=== PATIENT | male | born 1995 | race Caucasian/White ===

== ENCOUNTER 2016-08-09 22:44 | Emergency (ER) | payer BC, SELFPAY ==
[2016-08-09] MEDS ORDERED: Aspirin 81 MG Tab.Chew PO ONE (22:55)
--- NOTE | 2016-08-09 22:57 | EDM.PDOC ---
ED HISTORY OF PRESENT ILLNESS - General Chief Complaint: Chest Pain Stated Complaint: CHEST PAIN/NUMBNESS Time Seen by Provider: 08/09/16 22:51 Source of Information: Reports: Patient History Limitations: Reports: No limitations - History of Present Illness INITIAL COMMENTS - FREE TEXT/NARRATIVE: HISTORY AND PHYSICAL: History of present illness: [20-year-old male history of depression and anxiety now presents to the emergency department complaining of shortness of breath with bilateral hand and feet tingling. She has a history of chronically perceiving shortness of breath. He said multiple workups including being fully evaluated by a software development advisor and cleared. Vision a normal pulmonary function testing recently. He is never had an echocardiogram . No productive cough or fever. Denies pleuritic pain. No leg swelling or asymmetry. Per mom patient was breathing or if asked and both ends and they were tingly. Now improved Review of systems: As per history of present illness and below otherwise all systems reviewed and negative. Past medical history: As per history of present illness and as reviewed below otherwise noncontributory. Surgical history: As per history of present illness and as reviewed below otherwise noncontributory. Social history: No reported history of drug or alcohol abuse. Family history: As per history of present illness and as reviewed below otherwise noncontributory. Physical exam: HEENT: Atraumatic, normocephalic, pupils reactive, negative for conjunctival pallor or scleral icterus, mucous membranes moist, throat clear, neck supple, nontender, trachea midline. Lungs: Clear to auscultation, breath sounds equal bilaterally, chest nontender. Heart: S1S2, regular, negative for clicks, rubs, or JVD. Abdomen: Soft, nondistended, nontender. Negative for masses or hepatosplenomegaly. Negative for costovertebral tenderness. Pelvis: Stable nontender. Genitourinary: Deferred. Rectal: Deferred. Extremities: Atraumatic, negative for cords or calf pain. Neurovascular unremarkable. Neuro: Awake, alert, oriented. Cranial nerves II through XII unremarkable. Cerebellum unremarkable. Motor and sensory unremarkable throughout. Exam nonfocal. Diagnostics: [] Therapeutics: [] Impression: [Anxiety Hyperventilation syndrome] Plan: [] Signs and symptoms consistent with hyperventilation bilateral upper and lower shimmery tingling paresthesias. Patient is anxious. He is a history of anxiety and depression. Fully DInocencio workup unremarkable. Patient well-appearing comfortable on reevaluation prior to discharge no further workup or treatment indicated strict return precautions given Definitive disposition and diagnosis as appropriate pending reevaluation and review of above. - Related Data Allergies/ADRs: Allergies Allergy/AdvReac Type Severity Reaction Status Date / Time No Known Allergies Allergy Verified 04/18/16 23:27 Home Meds: Home Meds ALPRAZolam [Xanax] 1 tab PO ASDIRECTED PRN 10/09/14 [History] Albuterol Sulfate [Albuterol Sulfate HFA] 1 - 2 puff INH ASDIRECTED PRN [History] Sertraline HCl [Zoloft] 200 mg PO DAILY 10/09/14 [History] Past Medical History HEENT History: Reports: Impaired vision Cardiovascular History: Reports: None Respiratory History: Reports: Asthma Gastrointestinal History: Reports: None Genitourinary History: Reports: None Musculoskeletal History: Reports: None Neurological History: Reports: None Psychiatric History: Reports: Anxiety, Depression Endocrine/Metabolic History: Reports: None Hematologic History: Reports: None - Infectious Disease History Infectious Disease History: Reports: None - Past Surgical History GI Surgical History: Reports: None Male Surgical History: Reports: None Social & Family History - Family History Family Medical History: Noncontributory - Tobacco Use Smoking Status *Q: Current Every Day Smoker Years of Tobacco use: 5 Packs/Tins Daily: 1 - Caffeine Use Caffeine Use: Reports: None - Recreational Drug Use Recreational Drug Use: No ED ROS GENERAL - Review of Systems Review Of Systems: See Below (History of present illness) ED EXAM, GENERAL - Physical Exam Exam: See Below (History of present illness) Course - Vital Signs Last Recorded V/S: Last Vital Signs Temp 36.5 C 08/10/16 01:35 Pulse 85 08/10/16 01:35 Resp 16 08/10/16 01:35 BP 129/78 08/10/16 01:35 Pulse Ox 98 08/10/16 01:35 - Orders/Labs/Meds Orders: Active Orders 24 hr Category Date Time Status EKG 12 Lead [EKG Documentation Completion] [RC] ROUTINE Care 08/09/16 22:51 Active CTA Chest W WO Contrast [Ang Chest] [CT] Stat Exams 08/10/16 00:02 Taken Chest 1V Frontal [CR] Stat Exams 08/09/16 22:56 Taken Labs: Laboratory Tests 08/09/16 08/09/16 08/09/16 Range/Units 23:04 23:04 23:04 WBC 7.61 (4.0-11.0) K/uL RBC 5.39 (4.50-5.90) M/uL Hgb 15.8 (13.0-17.0) g/dL Hct 45.0 (38.0-50.0) % MCV 83.5 (80.0-98.0) fL MCH 29.3 (27.0-32.0) pg MCHC 35.1 (31.0-37.0) g/dL RDW Std Deviation 37.7 (28.0-62.0) fl RDW Coeff of Alfredito 13 (11.0-15.0) % Plt Count 219 (150-400) K/uL MPV 10.10 (7.40-12.00) fL Neut % (Auto) 56.3 (48.0-80.0) % Lymph % (Auto) 33.2 (16.0-40.0) % Stan[place] % (Auto) 8.0 (0.0-15.0) % Eos % (Auto) 2.0 (0.0-7.0) % Baso % (Auto) 0.5 (0.0-1.5) % Neut # (Auto) 4.3 (1.4-5.7) K/uL Lymph # (Auto) 2.5 H (0.6-2.4) K/uL Stan[place] # (Auto) 0.6 (0.0-0.8) K/uL Eos # (Auto) 0.2 (0.0-0.7) K/uL Baso # (Auto) 0.0 (0.0-0.1) K/uL Nucleated RBC % 0.0 /100WBC Nucleated RBCs # 0 K/uL Sodium 139 (136-146) mmol/L Potassium 3.9 (3.5-5.1) mmol/L Chloride 108 (98-110) mmol/L Carbon Dioxide 16 L (21-31) mmol/L BUN 15 (6.0-23.0) mg/dL Creatinine 1.0 (0.6-1.5) mg/dL Est Cr Clr Drug Dosing 127.18 mL/min Estimated GFR (MDRD) > 60.0 ml/min Glucose 99 (60-110) mg/dL Calcium 10.2 (8.8-10.8) mg/dL Total Bilirubin 0.6 (0.1-1.5) mg/dL AST 19 (5-40) IU/L ALT 44 (8-54) IU/L Alkaline Phosphatase 72 (40-150) Troponin I 0.22 (0.0-0.29) NG/ML Total Protein 8.1 H (6.0-8.0) g/dL Albumin 4.5 (3.5-5.0) g/dL Globulin 3.6 H (2.0-3.5) g/dL Albumin/Globulin Ratio 1.3 (1.3-2.8) Meds: Medications Discontinued Medications Generic Name Dose Route Start Last Admin Trade Name Freq PRN Reason Stop Dose Admin Aspirin 324 mg 08/09/16 22:55 08/09/16 23:04 Aspirin PO 08/09/16 22:56 324 mg ONETIME ONE Administration Sodium Chloride 1,000 mls @ 999 mls/hr 08/10/16 00:01 08/10/16 00:05 Normal Saline IV 08/10/16 01:01 999 mls/hr .Bolus ONE Administration Iopamidol 50 ml 08/10/16 00:39 08/10/16 00:40 Isovue Multipack-370 (76%) IVPUSH 08/10/16 00:40 50 ml ONETIME STA Administration Departure - Departure Time of Disposition: :17 Disposition: Home, Self-Care 01 Condition: good Clinical Impression: Anxiety, Hyperventilation syndrome Instructions: Hyperventilation, Panic Attacks, [id number] Referrals: Maxi Pinto MD [Primary Care Provider] - Forms: ED Department Discharge Additional Instructions: Your symptoms and findings tonight suggest manifestations of your anxiety with hyperventilation syndrome. Extensive workup tonight was negative including EKG, chest x-ray, CT angiogram of your chest to rule out pulmonary embolism or other pulmonary abnormality, and full laboratory workup. Followup with your tomorrow and return immediately for new severe or worsening symptoms. - My Orders Last 24 Hours: My Active Orders 08/09/16 22:51 EKG 12 Lead [EKG Documentation Completion] [RC] ROUTINE 08/09/16 22:56 Chest 1V Frontal [CR] Stat 08/10/16 00:02 CTA Chest W WO Contrast [Ang Chest] [CT] Stat - Assessment/Plan Last 24 Hours: My Active Orders 08/09/16 22:51 EKG 12 Lead [EKG Documentation Completion] [RC] ROUTINE 08/09/16 22:56 Chest 1V Frontal [CR] Stat 08/10/16 00:02 CTA Chest W WO Contrast [Ang Chest] [CT] Stat
[2016-08-09 23:31] LABS: CHLORIDE,CL 108 mmol/L (98-110); SODIUM,NA 139 mmol/L (136-146)
[2016-08-10] MEDS ORDERED: Sodium Chloride 0.9% 1,000 ML IV ONE (00:01)
[2016-08-10] MEDS ORDERED: Iopamidol 755 MG/ML 500 ML Multipack Bottle IVPUSH STA (00:39)
[2016-08-10 01:47] VITALS: BP 129/78
--- NOTE | 2016-08-10 15:40 | CR ---
EXAM DATE: 08/09/16 PATIENT'S AGE: 20 Patient: TIFFANIE ESPINOZA Facility: [place], [place] Site . Site : 1995 Study: XRay Chest [id number]/[id number] 11:10:41 PM Ordering Physician: Tony Hawkins Final Report: INDICATION: chest pain TECHNIQUE: Chest 1 view. COMPARISON: 04/19/16 FINDINGS: Cardiovascular and mediastinum: Heart size and vasculature are normal in caliber and appearance. Mediastinum is within normal limits. Lungs and pleural space: Lungs are clear. No sign of infiltrate or mass. No sign of pleural effusion. No pneumothorax. Bones and soft tissues: No significant findings. IMPRESSION: Unremarkable chest. Dictated by: Carlos Neal MD @ 08/09/2016 23:14:15 (Electronic Signature) Report Signed by Proxy. [facility]ENTERReggie
--- NOTE | 2016-08-10 15:41 | CT ---
EXAM DATE: 08/09/16 PATIENT'S AGE: 20 Patient: TIFFANIE ESPINOZA Facility: [place], [place] Site . Site : 1995 Study: CT Chest Angio [id number]/4/2017 12:42:10 AM Ordering Physician: Tony Hawkins Final Report: INDICATION: CHEST PAIN. TECHNIQUE: CT chest pulmonary angiogram acquired with IV contrast COMPARISON: None FINDINGS: Cardiovascular structures: Normal vascular enhancement of the pulmonary arteries , no sign of pulmonary embolism. Heart size is normal. No sign of aneurysm or dissection in the thoracic aorta. Mediastinum and clarissa: No mass or adenopathy. Lungs: No focal consolidation, pleural effusion, or pneumothorax. Chest wall and axilla: No mass or adenopathy. Bones: No significant findings. Upper abdomen: Unremarkable. IMPRESSION: 1. No evidence of pulmonary embolism. 2. No acute cardiopulmonary disease Dictated by Seth Shukla MD @ 08/10/2016 12:50:08 AM Dictated by: Seth Shukla MD @ 08/10/2016 00:53:03 (Electronic Signature) Report Signed by Proxy. [facility]
== END 2016-08-10 01:35 | disposition home or self-care (01) ==
LOC: MW.ED 22:44
DX: F41.9 Anxiety disorder, unspecified (principal); F45.8 Other somatoform disorders; J45.909 Unspecified asthma, uncomplicated; F32.9 Major depressive disorder, single episode, unspecified; F17.210 Nicotine dependence, cigarettes, uncomplicated; Z79.899 Other long term (current) drug therapy
CPT/HCPCS: 36415; 71010; 71275; 80053; 84484; 85025; 93005; 96360; 99285; A9270; J7040; Q9967; 99283

== ENCOUNTER 2017-04-24 14:39 | Emergency (ER) | payer BC, SELFPAY ==
[2017-04-24] MEDS ORDERED: Ondansetron 4 MG/2 ML SDV IVPUSH ONE (15:11)
[2017-04-24] MEDS ORDERED: Sodium Chloride 0.9% 1,000 ML IV ONE (15:11)
--- NOTE | 2017-04-24 15:16 | EDM.PDOC ---
ED HPI GENERAL MEDICAL PROBLEM - General Chief Complaint: General Stated Complaint: NAUSEA,DIZZY Time Seen by Provider: 04/24/17 14:43 Source of Information: Reports: Patient History Limitations: Reports: No Limitations - History of Present Illness INITIAL COMMENTS - FREE TEXT/NARRATIVE: HISTORY AND PHYSICAL: History of present illness: Patient is a 21-year-old male who presents to the emergency room today with complaints of nausea and dizziness 2 days. States he previously had similar symptoms which he had a diagnosis of an ear infection. Denies any headache, change in vision, chest pain, shortness of breath, abdominal pain, vomiting or diarrhea. He is eating and drinking appropriately. He denies any fevers at home. Denies any changes concerned with bowel or bladder. States last week he was placed on 2 new medications for his anxiety and depression, Vybrid and propranolol. He states "I don't know if it's allergic reaction to that". Review of systems: As per history of present illness and below otherwise all systems reviewed and negative. Past medical history: As per history of present illness and as reviewed below otherwise noncontributory. Surgical history: As per history of present illness and as reviewed below otherwise noncontributory. Social history: No reported history of drug or alcohol abuse. Family history: As per history of present illness and as reviewed below otherwise noncontributory. Physical exam: General: Well-developed and well-nourished 21-year-old male. Alert and oriented. Nontoxic appearing. HEENT: Atraumatic, normocephalic, pupils reactive, negative for conjunctival pallor or scleral icterus, mucous membranes moist, throat clear, neck supple, tympanic membrane normal bilaterally, nontender, trachea midline. Lungs: Clear to auscultation, breath sounds equal bilaterally, chest nontender. Heart: S1S2, regular rate and rhythm, tachycardic Abdomen: Soft, nondistended, nontender. Negative for masses or hepatosplenomegaly. Negative for costovertebral tenderness. Pelvis: Stable nontender. Genitourinary: Deferred. Rectal: Deferred. Extremities: Atraumatic, moves all extremities per self without any difficulty or deficit, negative for cords or calf pain. Neurovascular unremarkable. Neuro: Awake, alert, oriented. Cranial nerves II through XII unremarkable. Cerebellum unremarkable. Motor and sensory unremarkable throughout. Exam nonfocal. Patient voices concern that this may be a reaction to the fibroid and propranolol that he was placed on last week. He did not have any symptoms the first 4 days of starting this medication but has had the dizziness with nausea the last 2 days. We did discuss that it would be difficult to assess if this is a true reaction, and he needs to talk to his provider about discontinuing or reducing this medication. He voices understanding. CBC, CMP, and influenza are unremarkable. Chest x-ray is normal. Orthostatic vital signs are within normal limits. Vital signs are stable. Shared this information with the patient and he states that "this is probably just anxiety" . States his father will be driving him home. He does have alprazolam as a PRN medication, which he has not taken yet. He is requesting that we give him one thing at this point to help alleviate his symptoms. He reports that he has an appointment with Dr. Sarai Herrera in 3 weeks for follow-up appointment. We did discuss calling to possibly get this up sooner if he continues to have symptoms , as his medications may need to be adjusted. Patient voices understanding to her plan. He denies any further questions at this time. Diagnostics: CBC, CMP, x-ray, EKG, orthostatic vitals, influenza screen Therapeutics: IV fluid, Zofran Impression: Viral illness Anxiety Plan: 1. Please call to have your appointment scheduled sooner, if able, with Sarai Herrera. Tell them you were seen in the emergency room and they will likely get you in sooner. 2. Please make sure you're drinking plenty of fluids to prevent dehydration. Limit your use of caffeine or any other stimulants. 3. Follow up with her primary caregiver in the next 1-2 days. Return to the ED as needed and as discussed. Definitive disposition and diagnosis as appropriate pending reevaluation and review of above. Duration: Day(s): Location: Reports: Generalized - Related Data Allergies Allergy/AdvReac Type Severity Reaction Status Date / Time No Known Allergies Allergy Verified 04/24/17 14:58 Home Meds: Home Meds Propranolol [Inderal] 60 mg PO DAILY 04/24/17 [History] Vilazodone [Viibryd] 20 mg PO DAILY 04/24/17 [History] Past Medical History HEENT History: Reports: Impaired Vision Cardiovascular History: Reports: None Respiratory History: Reports: Asthma Gastrointestinal History: Reports: None Genitourinary History: Reports: None Musculoskeletal History: Reports: None Neurological History: Reports: None Psychiatric History: Reports: Anxiety, Depression Endocrine/Metabolic History: Reports: None Hematologic History: Reports: None - Infectious Disease History Infectious Disease History: Reports: None - Past Surgical History GI Surgical History: Reports: None Male Surgical History: Reports: None Social & Family History - Family History Family Medical History: Noncontributory - Tobacco Use Smoking Status *Q: Never Smoker Years of Tobacco use: 5 Packs/Tins Daily: 1 Second Hand Smoke Exposure: No - Caffeine Use Caffeine Use: Reports: Other - Recreational Drug Use Recreational Drug Use: No ED ROS GENERAL - Review of Systems Review Of Systems: ROS reveals no pertinent complaints other than HPI. ED EXAM, GENERAL - Physical Exam Exam: See Below (See dictation) Course - Vital Signs Last Recorded V/S: Last Vital Signs Temp 98.5 F 04/24/17 15:00 Pulse 102 H 04/24/17 15:00 Resp 18 04/24/17 15:00 BP 142/85 H 04/24/17 15:00 Pulse Ox 98 04/24/17 15:00 Orthostatic Blood Pressure [] 164/87 Orthostatic Blood Pressure [] 150/89 Orthostatic Blood Pressure [] 153/93 - Orders/Labs/Meds Orders: Active Orders 24 hr Category Date Time Status EKG Documentation Completion [RC] STAT Care 04/24/17 15:12 Active Orthostatic Vital Signs [RC] ASDIRECTED Care 04/24/17 15:11 Active Labs: Laboratory Tests 04/24/17 04/24/17 Range/Units 15:25 15:25 WBC 8.15 (4.0-11.0) K/uL RBC 5.51 (4.50-5.90) M/uL Hgb 16.2 (13.0-17.0) g/dL Hct 45.8 (38.0-50.0) % MCV 83.1 (80.0-98.0) fL MCH 29.4 (27.0-32.0) pg MCHC 35.4 (31.0-37.0) g/dL RDW Std Deviation 37.9 (28.0-62.0) fl RDW Coeff of Alfredito 13 (11.0-15.0) % Plt Count 212 (150-400) K/uL MPV 10.60 (7.40-12.00) fL Neut % (Auto) 62.1 (48.0-80.0) % Lymph % (Auto) 29.0 (16.0-40.0) % [place] % (Auto) 6.7 (0.0-15.0) % Eos % (Auto) 1.6 (0.0-7.0) % Baso % (Auto) 0.6 (0.0-1.5) % Neut # (Auto) 5.1 (1.4-5.7) K/uL Lymph # (Auto) 2.4 (0.6-2.4) K/uL [place] # (Auto) 0.6 (0.0-0.8) K/uL Eos # (Auto) 0.1 (0.0-0.7) K/uL Baso # (Auto) 0.1 (0.0-0.1) K/uL Nucleated RBC % 0.0 /100WBC Nucleated RBCs # 0 K/uL Sodium 140 (136-146) mmol/L Potassium 3.7 (3.5-5.1) mmol/L Chloride 108 (98-110) mmol/L Carbon Dioxide 19 L (21-31) mmol/L BUN 13 (6.0-23.0) mg/dL Creatinine 1.0 (0.6-1.5) mg/dL Est Cr Clr Drug Dosing 129.84 mL/min Estimated GFR (MDRD) > 60.0 ml/min Glucose 107 (60-110) mg/dL Calcium 10.0 (8.8-10.8) mg/dL Total Bilirubin 0.5 (0.1-1.5) mg/dL AST 22 (5-40) IU/L ALT 49 (8-54) IU/L Alkaline Phosphatase 51 (40-150) Total Protein 8.0 (6.0-8.0) g/dL Albumin 4.7 (3.5-5.0) g/dL Globulin 3.3 (2.0-3.5) g/dL Albumin/Globulin Ratio 1.4 (1.3-2.8) Meds: Medications Discontinued Medications Generic Name Dose Route Start Last Admin Trade Name Freq PRN Reason Stop Dose Admin Sodium Chloride 1,000 mls @ 999 mls/hr 04/24/17 15:11 04/24/17 15:24 Normal Saline IV 04/24/17 16:11 999 mls/hr STAT ONE Administration Ondansetron HCl 4 mg 04/24/17 15:11 04/24/17 15:25 Zofran IVPUSH 04/24/17 15:12 4 mg ONETIME ONE Administration Departure - Departure Time of Disposition: 16:18 Disposition: Home, Self-Care 01 Clinical Impression: Viral illness, Anxiety - Discharge Information Referrals: Maxi Pinto MD [Primary Care Provider] - Forms: ED Department Discharge Additional Instructions: My general discharge The following information is given to patients seen in the emergency department who are being discharged to home. This information is to outline your options for follow-up care. We provide all patients seen in our emergency department with a follow-up referral. The need for follow-up, as well as the timing and circumstances, are variable depending upon the specifics of your emergency department visit. If you don't have a primary care physician on staff, we will provide you with a referral. We always advise you to contact your personal physician following an emergency department visit to inform them of the circumstance of the visit and for follow-up with them and/or the need for any referrals to a consulting specialist. The emergency department will also refer you to a specialist when appropriate. This referral assures that you have the opportunity for follow-up care with a specialist. All of these measure are taken in an effort to provide you with optimal care, which includes your follow-up. Under all circumstances we always encourage you to contact your private physician who remains a resource for coordinating your care. When calling for follow-up care, please make the office aware that this follow-up is from your recent emergency room visit. If for any reason you are refused follow-up, please contact the [facility] at and asked to speak to the emergency department charge nurse. [facility] [address] [place] [id number] 1. Please call to have your appointment scheduled sooner, if able, with Sarai Herrera. Tell them you were seen in the emergency room and they will likely get you in sooner. 2. Please make sure you're drinking plenty of fluids to prevent dehydration. Limit your use of caffeine or any other stimulants. 3. Follow up with her primary caregiver in the next 1-2 days. Return to the ED as needed and as discussed. - My Orders Last 24 Hours: My Active Orders 04/24/17 15:11 Orthostatic Vital Signs [RC] ASDIRECTED 04/24/17 15:12 EKG Documentation Completion [RC] STAT - Assessment/Plan Last 24 Hours: My Active Orders 04/24/17 15:11 Orthostatic Vital Signs [RC] ASDIRECTED 04/24/17 15:12 EKG Documentation Completion [RC] STAT
--- NOTE | 2017-04-24 15:44 | CR ---
EXAMINATION: Portable chest radiograph. HISTORY: Dizziness. FINDINGS: The trachea is midline. The cardiomediastinal silhouette is within normal limits. No pulmonary infilt rates or effusions. There is a thin line along the right pulmonary apex, there appears to be pulmonar y markings distal to this. Osseous structures appear unremarkable. IMPRESSION: 1. Thin line within the right pulmonary apex, possibly a pneumothorax however most likely artifactual . Repeat without overlying folding may be beneficial.
[2017-04-24 16:00] LABS: CHLORIDE,CL 108 mmol/L (98-110); SODIUM,NA 140 mmol/L (136-146)
[2017-04-24] MEDS ORDERED: LORazepam 2 MG/ML MDV IVPUSH ONE (16:12)
[2017-04-24] MEDS ORDERED: LORazepam 2 MG/ML MDV ONE (16:22)
[2017-04-24 18:27] VITALS: BP 144/77
== END 2017-04-24 16:27 | disposition home or self-care (01) ==
LOC: MW.ED 14:39
DX: F41.9 Anxiety disorder, unspecified (principal); B34.9 Viral infection, unspecified; Z79.899 Other long term (current) drug therapy
CPT/HCPCS: 36415; 71045; 80053; 85025; 87804; 93005; 96361; 96374; 96375; 99284; J2060; J2405; J7040

== ENCOUNTER 2017-06-14 20:06 | Emergency (ER) | payer BC ==
[2017-06-14] MEDS ORDERED: Ondansetron 4 MG Tab.DIS PO ONE (20:42)
[2017-06-14] MEDS ORDERED: Ondansetron 4 MG/2 ML SDV IVPUSH ONE (20:47)
--- NOTE | 2017-06-14 20:47 | EDM.PDOC ---
ED HPI GENERAL MEDICAL PROBLEM - General Chief Complaint: General Stated Complaint: FEVER/CHILLS/CHEST PAIN Time Seen by Provider: 06/14/17 20:38 Source of Information: Reports: Patient History Limitations: Reports: No Limitations - History of Present Illness INITIAL COMMENTS - FREE TEXT/NARRATIVE: HISTORY AND PHYSICAL: History of present illness: Patient is a 21-year-old male who presents to the emergency room today with complaints of fever, chills, body aches, cough and nausea/vomiting since Sunday. He states he has a recorded temperature of 102 which he has been controlling with Tylenol [id number]. Has had intermittent nausea and vomiting with a decreased appetite. Denies any chest pain, shortness of breath, abdominal pain or diarrhea/constipation. As not received the influenza vaccine this year. Review of systems: As per history of present illness and below otherwise all systems reviewed and negative. Past medical history: As per history of present illness and as reviewed below otherwise noncontributory. Surgical history: As per history of present illness and as reviewed below otherwise noncontributory. Social history: No reported history of drug or alcohol abuse. Family history: As per history of present illness and as reviewed below otherwise noncontributory. Physical exam: Gen: Well-developed and well-nourished 21-year-old male. Alert and oriented. Nontoxic appearing and in no acute distress. HEENT: Atraumatic, normocephalic, pupils reactive, negative for conjunctival pallor or scleral icterus, mucous membranes moist, throat clear, neck supple, nontender, trachea midline. Lungs: Clear to auscultation, breath sounds equal bilaterally, chest nontender. Heart: S1S2, regular 8 and rhythm, tachycardia Abdomen: Soft, nondistended, nontender. Negative for masses or hepatosplenomegaly. Negative for costovertebral tenderness. Pelvis: Stable nontender. Genitourinary: Deferred. Rectal: Deferred. Extremities: Atraumatic, negative for cords or calf pain. Neurovascular unremarkable. Neuro: Awake, alert, oriented. Cranial nerves II through XII unremarkable. Cerebellum unremarkable. Motor and sensory unremarkable throughout. Exam nonfocal. Chest x-ray is normal, no evidence of infiltrate or pneumonia. Diagnostics: CBC, CMP, influenza, chest x-ray Therapeutics: IV fluid, Zofran Impression: Viral illness Plan: 1. Supportive care measures such as: Rest, Tylenol and/or ibuprofen as needed for pain management. Take the Zofran as directed to alleviate nausea/vomiting. Please drink small frequent sips of fluids to prevent dehydration. 2. Follow up with your primary care provider in the next couple days. Return to the ED as needed as discussed. Definitive disposition and diagnosis as appropriate pending reevaluation and review of above. Duration: Day(s): Headache Pain Score (Numeric/FACES): 6 - Related Data Allergies Allergy/AdvReac Type Severity Reaction Status Date / Time No Known Allergies Allergy Verified 06/14/17 20:40 Home Meds: Home Meds ALPRAZolam [Xanax XR] 1 mg PO DAILY PRN 06/14/17 [History] Desvenlafaxine Succinate [Pristiq ER] 100 mg PO DAILY 06/14/17 [History] Fluticasone/Vilanterol [Breo Ellipta 100-25 MCG Inhalation Kit] 1 puff INH DAILY 06/14/17 [History] Past Medical History HEENT History: Reports: Impaired Vision Cardiovascular History: Reports: None Respiratory History: Reports: Asthma Gastrointestinal History: Reports: None Genitourinary History: Reports: None Musculoskeletal History: Reports: None Neurological History: Reports: None Psychiatric History: Reports: Anxiety, Depression Endocrine/Metabolic History: Reports: None Hematologic History: Reports: None - Infectious Disease History Infectious Disease History: Reports: None - Past Surgical History GI Surgical History: Reports: None Male Surgical History: Reports: None Social & Family History - Family History Family Medical History: Noncontributory - Tobacco Use Smoking Status *Q: Never Smoker Years of Tobacco use: 5 Packs/Tins Daily: 1 Second Hand Smoke Exposure: No - Caffeine Use Caffeine Use: Reports: None - Recreational Drug Use Recreational Drug Use: No ED ROS GENERAL - Review of Systems Review Of Systems: ROS reveals no pertinent complaints other than HPI. ED EXAM, GENERAL - Physical Exam Exam: See Below (See dictation) Course - Vital Signs Last Recorded V/S: Last Vital Signs Temp 104.2 F H 06/14/17 22:59 Pulse 120 H 06/14/17 22:56 Resp 19 06/14/17 22:56 BP 104/57 L 06/14/17 22:56 Pulse Ox 96 06/14/17 22:56 - Orders/Labs/Meds Labs: Laboratory Tests 06/14/17 06/14/17 06/14/17 Range/Units 21:18 21:18 21:18 WBC 9.88 (4.0-11.0) K/uL RBC 5.80 (4.50-5.90) M/uL Hgb 17.1 H (13.0-17.0) g/dL Hct 48.4 (38.0-50.0) % MCV 83.4 (80.0-98.0) fL MCH 29.5 (27.0-32.0) pg MCHC 35.3 (31.0-37.0) g/dL RDW Std Deviation 38.2 (28.0-62.0) fl RDW Coeff of Alfredito 13 (11.0-15.0) % Plt Count 172 (150-400) K/uL MPV 10.90 (7.40-12.00) fL Neut % (Auto) 70.8 (48.0-80.0) % Lymph % (Auto) 15.7 L (16.0-40.0) % [place] % (Auto) 12.9 (0.0-15.0) % Eos % (Auto) 0.1 (0.0-7.0) % Baso % (Auto) 0.5 (0.0-1.5) % Neut # (Auto) 7.0 H (1.4-5.7) K/uL Lymph # (Auto) 1.6 (0.6-2.4) K/uL [place] # (Auto) 1.3 H (0.0-0.8) K/uL Eos # (Auto) 0.0 (0.0-0.7) K/uL Baso # (Auto) 0.1 (0.0-0.1) K/uL Nucleated RBC % 0.0 /100WBC Nucleated RBCs # 0 K/uL Sodium 138 (136-148) mmol/L Potassium 3.8 (3.5-5.1) mmol/L Chloride 102 (98-107) mmol/L Carbon Dioxide 23.7 (21.0-32.0) mmol/L BUN 12 (7.0-18.0) mg/dL Creatinine 1.2 (0.8-1.3) mg/dL Est Cr Clr Drug Dosing 108.20 mL/min Estimated GFR (MDRD) > 60.0 ml/min Glucose 112 H (74-106) mg/dL Calcium 9.5 (8.5-10.1) mg/dL Total Bilirubin 0.9 (0.2-1.0) mg/dL AST 16 (15-37) IU/L ALT 47 (14-63) IU/L Alkaline Phosphatase 51 (46-116) U/L Total Protein 8.5 H (6.4-8.2) g/dL Albumin 4.1 (3.4-5.0) g/dL Globulin 4.4 H (2.0-3.5) g/dL Albumin/Globulin Ratio 0.9 L (1.3-2.8) Monoscreen NEGATIVE (NEG) Meds: Medications Discontinued Medications Generic Name Dose Route Start Last Admin Trade Name Freq PRN Reason Stop Dose Admin Acetaminophen 1,000 mg 06/14/17 22:53 06/14/17 22:58 Tylenol Extra Strength PO 06/14/17 22:54 1,000 mg ONETIME ONE Administration Sodium Chloride 500 mls @ 999 mls/hr 06/14/17 21:00 06/14/17 21:43 Normal Saline IV 999 mls/hr STAT GLENYS Administration Ibuprofen 800 mg 06/14/17 22:53 06/14/17 22:59 Motrin PO 06/14/17 22:54 800 mg ONETIME ONE Administration Ondansetron HCl 4 mg 06/14/17 20:42 06/14/17 21:54 Zofran Odt PO 06/14/17 20:43 Not Given ONETIME ONE Ondansetron HCl 4 mg 06/14/17 20:47 06/14/17 21:53 Zofran IVPUSH 06/14/17 20:48 4 mg ONETIME ONE Administration Departure - Departure Time of Disposition: 22:05 Disposition: Home, Self-Care 01 Clinical Impression: Viral illness - Discharge Information Instructions: Viral Respiratory Infection, [id number] Referrals: PCP,None [Primary Care Provider] - Forms: ED Department Discharge Additional Instructions: My general discharge The following information is given to patients seen in the emergency department who are being discharged to home. This information is to outline your options for follow-up care. We provide all patients seen in our emergency department with a follow-up referral. The need for follow-up, as well as the timing and circumstances, are variable depending upon the specifics of your emergency department visit. If you don't have a primary care physician on staff, we will provide you with a referral. We always advise you to contact your personal physician following an emergency department visit to inform them of the circumstance of the visit and for follow-up with them and/or the need for any referrals to a consulting specialist. The emergency department will also refer you to a specialist when appropriate. This referral assures that you have the opportunity for follow-up care with a specialist. All of these measure are taken in an effort to provide you with optimal care, which includes your follow-up. Under all circumstances we always encourage you to contact your private physician who remains a resource for coordinating your care. When calling for follow-up care, please make the office aware that this follow-up is from your recent emergency room visit. If for any reason you are refused follow-up, please contact the [facility] Emergency Department at and asked to speak to the emergency department charge nurse. [facility] [address] [place] [address] 1. Supportive care measures such as: Rest, Tylenol and/or ibuprofen as needed for pain management. Take the Zofran as directed to alleviate nausea/vomiting. Please drink small frequent sips of fluids to prevent dehydration. 2. Follow up with your primary care provider in the next couple days. Return to the ED as needed as discussed.
[2017-06-14] MEDS ORDERED: Sodium Chloride 0.9% 500 ML IV SCH (21:00)
[2017-06-14 21:56] LABS: CHLORIDE,CL 102 mmol/L (98-107); SODIUM,NA 138 mmol/L (136-148)
[2017-06-14] MEDS ORDERED: Ibuprofen 800 MG Tab PO ONE (22:53)
[2017-06-14] MEDS ORDERED: Acetaminophen 500 MG Tab PO ONE (22:53)
[2017-06-15 02:45] VITALS: BP 104/57
--- NOTE | 2017-06-15 14:47 | CR ---
EXAM DATE: 06/14/17 PATIENT'S AGE: 21 Patient: TIFFANIE ESPINOZA Facility: [place], [place] Site . Site : 1995 Study: XRay Chest [id number] 9:32:13 PM Ordering Physician: Doctor Taylor Final Report: INDICATION: Fever for 2 days. Cough and shortness of breath. TECHNIQUE: PA and lateral chest x-ray. FINDINGS: Heart size normal. Lungs clear without infiltrate or consolidation. Chest otherwise negative without acute disease. Dictated by Bk Sam MD @ Jun 14 2017 9:40PM (Electronic Signature) Bottom of Form 1 Report Signed by Proxy. AUGIE
== END 2017-06-14 23:02 | disposition home or self-care (01) ==
LOC: MW.ED 20:06
DX: B34.9 Viral infection, unspecified (principal); F41.9 Anxiety disorder, unspecified; J45.909 Unspecified asthma, uncomplicated; F32.9 Major depressive disorder, single episode, unspecified; Z79.899 Other long term (current) drug therapy
CPT/HCPCS: 36415; 71046; 80053; 85025; 86308; 87804; 96374; 99284; A9270; J2405; J7040; 99283

== ENCOUNTER 2017-06-21 20:02 | Emergency (ER) | payer BC ==
[2017-06-21] MEDS ORDERED: Ondansetron 4 MG/2 ML SDV IVPUSH ONE (20:52)
[2017-06-21] MEDS ORDERED: Sodium Chloride 0.9% 1,000 ML IV ONE (20:52)
--- NOTE | 2017-06-21 20:52 | EDM.PDOC ---
ED HPI GENERAL MEDICAL PROBLEM - General Chief Complaint: Gastrointestinal Problem Stated Complaint: VOMITING Time Seen by Provider: 06/21/17 20:13 Source of Information: Reports: Patient History Limitations: Reports: No Limitations - History of Present Illness INITIAL COMMENTS - FREE TEXT/NARRATIVE: HISTORY AND PHYSICAL: History of present illness: Patient is a 21-year-old male who presents to the emergency room today with complaints of nausea, vomiting and diarrhea over the past 3-4 days. Patient was seen 06/14/2017 through the emergency room by myself, for some similar symptoms and had a full workup at that time. Labs were unremarkable and he was diagnosed with viral illness and given Zofran prescription. He states that his symptoms had resolved for 2-3 days and then gradually started again. His any fever, chills, chest pain or shortness of breath. He denies any abdominal pain, dysuria or constipation. Review of systems: As per history of present illness and below otherwise all systems reviewed and negative. Past medical history: As per history of present illness and as reviewed below otherwise noncontributory. Surgical history: As per history of present illness and as reviewed below otherwise noncontributory. Social history: No reported history of drug or alcohol abuse. Family history: As per history of present illness and as reviewed below otherwise noncontributory. Physical exam: General: Well-developed and well-nourished 21-year-old male. Alert and oriented. Nontoxic appearing and in no acute distress. HEENT: Atraumatic, normocephalic, pupils reactive, negative for conjunctival pallor or scleral icterus, mucous membranes moist, throat clear, neck supple, nontender, trachea midline. Lungs: Clear to auscultation, breath sounds equal bilaterally, chest nontender. Heart: S1S2, regular rate and rhythm without overt murmur. Abdomen: Soft, nondistended, nontender. Negative for masses or hepatosplenomegaly. Negative for costovertebral tenderness. Pelvis: Stable nontender. Genitourinary: Deferred. Rectal: Deferred. Extremities: Atraumatic, negative for cords or calf pain. Neurovascular unremarkable. Neuro: Awake, alert, oriented. Cranial nerves II through XII unremarkable. Cerebellum unremarkable. Motor and sensory unremarkable throughout. Exam nonfocal. Patient has no abdominal pain or tenderness with palpation. Routine lab work will be done along with stool studies. Negative Campylobacter and C. difficile, other stool studies are pending. Patient will be discharged with Bentyl and Zofran. Encouraged him to follow up with his primary care provider. Diagnostics: CBC, CMP, stool studies Therapeutics: IV fluid, Zofran Impression: Viral gastroenteritis Plan: 1. Prescription for Bentyl, you may take 1 tablet up to 4 times daily as needed. Zofran for nausea, may take 1 tab every 6 hours as needed. 2. Supportive care such as Tylenol and/or ibuprofen as needed for pain and fever management. Land diet for the next 24-48 hours. Encourage fluids to prevent dehydration. 3. Follow-up with Dr. Pinto next week. Return to the ED as needed and as discussed. Definitive disposition and diagnosis as appropriate pending reevaluation and review of above. abdominal Pain Score (Numeric/FACES): 0 - Related Data Allergies Allergy/AdvReac Type Severity Reaction Status Date / Time No Known Allergies Allergy Verified 06/21/17 20:36 Home Meds: Home Meds ALPRAZolam [Xanax XR] 1 mg PO DAILY PRN 06/14/17 [History] Desvenlafaxine Succinate [Pristiq ER] 100 mg PO DAILY 06/14/17 [History] Fluticasone/Vilanterol [Breo Ellipta 100-25 MCG Inhalation Kit] 1 puff INH DAILY 06/14/17 [History] Past Medical History HEENT History: Reports: Impaired Vision Cardiovascular History: Reports: None Respiratory History: Reports: Asthma Gastrointestinal History: Reports: None Genitourinary History: Reports: None Musculoskeletal History: Reports: None Neurological History: Reports: None Psychiatric History: Reports: Anxiety, Depression Endocrine/Metabolic History: Reports: None Hematologic History: Reports: None - Infectious Disease History Infectious Disease History: Reports: None - Past Surgical History GI Surgical History: Reports: None Male Surgical History: Reports: None Social & Family History - Family History Family Medical History: Noncontributory - Tobacco Use Smoking Status *Q: Never Smoker Years of Tobacco use: 5 Packs/Tins Daily: 1 Second Hand Smoke Exposure: No - Caffeine Use Caffeine Use: Reports: None - Recreational Drug Use Recreational Drug Use: No ED ROS GENERAL - Review of Systems Review Of Systems: ROS reveals no pertinent complaints other than HPI. ED EXAM, GI/ABD - Physical Exam Exam: See Below (See dictation) Course - Vital Signs Last Recorded V/S: Last Vital Signs Temp 98.2 F 06/21/17 20:36 Pulse 132 H 06/21/17 20:36 Resp 18 06/21/17 20:36 BP 146/80 H 06/21/17 20:36 Pulse Ox 95 06/21/17 20:36 - Orders/Labs/Meds Orders: Active Orders 24 hr Category Date Time Status CULTURE STOOL + CAMPY+SHIGATOX [RM] Stat Lab 06/21/17 21:51 Results Labs: Laboratory Tests 06/21/17 06/21/17 Range/Units 20:55 20:55 WBC 7.97 (4.0-11.0) K/uL RBC 5.57 (4.50-5.90) M/uL Hgb 16.6 (13.0-17.0) g/dL Hct 46.8 (38.0-50.0) % MCV 84.0 (80.0-98.0) fL MCH 29.8 (27.0-32.0) pg MCHC 35.5 (31.0-37.0) g/dL RDW Std Deviation 38.3 (28.0-62.0) fl RDW Coeff of Alfredito 13 (11.0-15.0) % Plt Count 351 (150-400) K/uL MPV 9.80 (7.40-12.00) fL Neut % (Auto) 77.3 (48.0-80.0) % Lymph % (Auto) 13.0 L (16.0-40.0) % [place] % (Auto) 7.5 (0.0-15.0) % Eos % (Auto) 1.8 (0.0-7.0) % Baso % (Auto) 0.4 (0.0-1.5) % Neut # (Auto) 6.2 H (1.4-5.7) K/uL Lymph # (Auto) 1.0 (0.6-2.4) K/uL [place] # (Auto) 0.6 (0.0-0.8) K/uL Eos # (Auto) 0.1 (0.0-0.7) K/uL Baso # (Auto) 0.0 (0.0-0.1) K/uL Nucleated RBC % 0.0 /100WBC Nucleated RBCs # 0 K/uL Sodium 138 (136-148) mmol/L Potassium 4.0 (3.5-5.1) mmol/L Chloride 103 (98-107) mmol/L Carbon Dioxide 20.7 L (21.0-32.0) mmol/L BUN 17 (7.0-18.0) mg/dL Creatinine 1.0 (0.8-1.3) mg/dL Est Cr Clr Drug Dosing 129.84 mL/min Estimated GFR (MDRD) > 60.0 ml/min Glucose 93 (74-106) mg/dL Calcium 9.5 (8.5-10.1) mg/dL Total Bilirubin 0.6 (0.2-1.0) mg/dL AST 25 (15-37) IU/L ALT 46 (14-63) IU/L Alkaline Phosphatase 59 (46-116) U/L Total Protein 8.7 H (6.4-8.2) g/dL Albumin 4.1 (3.4-5.0) g/dL Globulin 4.6 H (2.0-3.5) g/dL Albumin/Globulin Ratio 0.9 L (1.3-2.8) Meds: Medications Discontinued Medications Generic Name Dose Route Start Last Admin Trade Name Freq PRN Reason Stop Dose Admin Dicyclomine HCl 10 mg 06/21/17 21:45 06/21/17 22:04 Bentyl PO 06/21/17 21:46 10 mg ONETIME ONE Administration Sodium Chloride 1,000 mls @ 999 mls/hr 06/21/17 20:52 06/21/17 20:57 Normal Saline IV 06/21/17 21:52 999 mls/hr STAT ONE Administration Ondansetron HCl 4 mg 06/21/17 20:52 06/21/17 20:57 Zofran IVPUSH 06/21/17 20:53 4 mg ONETIME ONE Administration Departure - Departure Time of Disposition: 22:59 Disposition: Home, Self-Care 01 Condition: Good Clinical Impression: Viral gastroenteritis - Discharge Information Instructions: Viral Gastroenteritis, Adult Referrals: Maxi Pinto MD [Primary Care Provider] - Forms: ED Department Discharge Additional Instructions: The following information is given to patients seen in the emergency department who are being discharged to home. This information is to outline your options for follow-up care. We provide all patients seen in our emergency department with a follow-up referral. The need for follow-up, as well as the timing and circumstances, are variable depending upon the specifics of your emergency department visit. If you don't have a primary care physician on staff, we will provide you with a referral. We always advise you to contact your personal physician following an emergency department visit to inform them of the circumstance of the visit and for follow-up with them and/or the need for any referrals to a consulting specialist. The emergency department will also refer you to a specialist when appropriate. This referral assures that you have the opportunity for follow-up care with a specialist. All of these measure are taken in an effort to provide you with optimal care, which includes your follow-up. Under all circumstances we always encourage you to contact your private physician who remains a resource for coordinating your care. When calling for follow-up care, please make the office aware that this follow-up is from your recent emergency room visit. If for any reason you are refused follow-up, please contact the [facility] Emergency Department at and asked to speak to the emergency department charge nurse. [facility] [address] [place] [address] 1. Labs and stool studies are normal. This appears to be viral in nature. Prescription for Bentyl, you may take 1 tablet up to 4 times daily as needed for irritable bowels. Zofran for nausea, may take 1 tab every 6 hours as needed. 2. Supportive care such as Tylenol and/or ibuprofen as needed for pain and fever management. Land diet for the next 24-48 hours. Encourage fluids to prevent dehydration. 3. Follow-up with Dr. Pinto next week. Return to the ED as needed and as discussed. - My Orders Last 24 Hours: My Active Orders 06/21/17 21:51 CULTURE STOOL + CAMPY+SHIGATOX [RM] Stat - Assessment/Plan Last 24 Hours: My Active Orders 06/21/17 21:51 CULTURE STOOL + CAMPY+SHIGATOX [RM] Stat
[2017-06-21 21:39] LABS: CHLORIDE,CL 103 mmol/L (98-107); SODIUM,NA 138 mmol/L (136-148)
[2017-06-21] MEDS ORDERED: Dicyclomine 10 MG Cap PO ONE (21:45)
[2017-06-22 00:03] VITALS: BP 124/80
== END 2017-06-21 23:15 | disposition home or self-care (01) ==
LOC: MW.ED 20:02
DX: A08.4 Viral intestinal infection, unspecified (principal); Z79.899 Other long term (current) drug therapy
CPT/HCPCS: 80053; 85025; 87046; 87324; 96361; 96374; 99284; A9270; J2405; J7040; 87899; 99283

== ENCOUNTER 2017-11-28 17:23 | Emergency (ER) | payer BC ==
[2017-11-28] MEDS ORDERED: Sodium Chloride 0.9% 10 ML Syringe FLUSH PRN (17:51)
[2017-11-28] MEDS ORDERED: Sodium Chloride 0.9% 1,000 ML IV ONE (17:51)
[2017-11-28] MEDS ORDERED: Sodium Chloride 0.9% 2.5 ML Syringe FLUSH PRN (17:51)
--- NOTE | 2017-11-28 17:56 | EDM.PDOC ---
ED HPI GENERAL MEDICAL PROBLEM - General Chief Complaint: Cardiovascular Problem Stated Complaint: LIGHT HEADED HEART RACING Time Seen by Provider: 11/28/17 17:39 - History of Present Illness INITIAL COMMENTS - FREE TEXT/NARRATIVE: HISTORY AND PHYSICAL: History of present illness: The patient is a 22-year-old male with a history of asthma which is well controlled and anxiety disorder and who sees Dr. Pinto in our family practice clinic for checkups and presents with complaints of a one week of lightheadedness feeling like he is drained and he might pass out, palpitations intermittently, chest pressure intermittently nausea intermittently shortness of breath intermittently and feeling sweaty but no documented temperature. The patient says that he had some similar symptoms a month ago but it only lasted a few days and it went away so he did not seek treatment with his provider or here in the ED. The patient tells me that the symptoms are constant from the moment he wakes up until the moment he goes to sleep but they never wake him from sleep. He says it is worse when he is sitting and standing and better when he lays flat. They do not get worse with rapid position change or movement of his head. He doesn't feel like he is spending he does feels like he is lightheaded but he has not passed out. He's had no fevers up her respiratory symptoms sinus pain or congestion and no neck or back pain. He's had no recent trauma. He is having normal urine output and is been eating normally. He says he drinks a lot of hydration and has no social history and does not drink caffeine and he does not have any focal weakness or neurosensory changes in his extremities when the symptoms are occurring. The patient tells me that his palpitations/racing heart is kind of like when he has an anxiety reaction and is not been occurring constantly for the last 1 week area he says it occurs episodically with the other symptoms. The only thing that has been consistent and constant over the last 1 week is the lightheadedness and feeling like he might pass out. Review of systems: As per history of present illness and below otherwise all systems reviewed and negative. Past medical history: As per history of present illness and as reviewed below otherwise noncontributory. Surgical history: As per history of present illness and as reviewed below otherwise noncontributory. Social history: No reported history of drug or alcohol abuse. Family history: As per history of present illness and as reviewed below otherwise noncontributory. Physical exam: General: Well-developed well-nourished mildly overweight man who is nontoxic and vital signs have been reviewed by me. HEENT: Atraumatic, normocephalic, pupils reactive, negative for conjunctival pallor or scleral icterus, mucous membranes moist, throat clear, neck supple, nontender, trachea midline. There is no cervical adenopathy or nuchal rigidity Lungs: Clear to auscultation, breath sounds equal bilaterally, chest nontender. Heart: S1S2, regular, negative for clicks, rubs, or JVD. No overt murmur is appreciated and heart rate on my evaluation is normal Abdomen: Soft, nondistended, nontender. Negative for masses or hepatosplenomegaly. NABS Pelvis: Stable nontender. Genitourinary: Deferred. Rectal: Deferred. Extremities: Atraumatic, negative for cords or calf pain. Neurovascular unremarkable. No pedal edema Neuro: Awake, alert, oriented. Cranial nerves II through XII unremarkable. Cerebellum unremarkable. Motor and sensory unremarkable throughout. Exam nonfocal. Skin: No evidence of any diaphoresis and turgor is normal Diagnostics: EKG CBC CMP INR TSH UA magnesium level CT scan of the head chest x-ray orthostatic vitals Therapeutics: IV O2 monitor IV fluids All testing results were discussed with the patient and family at bedside. The patient has a follow-up appointment with Dr. Pinto on Sunday and I will contact respiratory therapy to see if we can place a holter monitor today but if one is not available we will give him directions on returning tomorrow to have a Holter monitor placed. The patient is comfortable with discharge home and was offered admission but declines at this time. He is aware of reasons to return to need to hydrate and to keep all follow-up appointments. Impression: Persistent. lightheadedness with episodic palpitations Definitive disposition and diagnosis as appropriate pending reevaluation and review of above. Chest Pain Score (Numeric/FACES): 6 - Related Data Allergies Allergy/AdvReac Type Severity Reaction Status Date / Time No Known Allergies Allergy Verified 11/28/17 17:25 Home Meds: Home Meds ALPRAZolam [Xanax XR] 1 mg PO DAILY PRN 06/14/17 [History] Desvenlafaxine Succinate [Pristiq ER] 100 mg PO DAILY 06/14/17 [History] Fluticasone/Vilanterol [Breo Ellipta 100-25 MCG Inhalation Kit] 1 puff INH DAILY 06/14/17 [History] Past Medical History HEENT History: Reports: Impaired Vision Cardiovascular History: Reports: None Respiratory History: Reports: Asthma Gastrointestinal History: Reports: None Genitourinary History: Reports: None Musculoskeletal History: Reports: None Neurological History: Reports: None Psychiatric History: Reports: Anxiety, Depression Endocrine/Metabolic History: Reports: None Hematologic History: Reports: None - Infectious Disease History Infectious Disease History: Reports: None - Past Surgical History GI Surgical History: Reports: None Male Surgical History: Reports: None Social & Family History - Family History Family Medical History: Noncontributory - Tobacco Use Smoking Status *Q: Never Smoker - Caffeine Use Caffeine Use: Reports: None - Recreational Drug Use Recreational Drug Use: No ED ROS GENERAL - Review of Systems Review Of Systems: ROS reveals no pertinent complaints other than HPI. ED EXAM, GENERAL - Physical Exam Exam: See Below (See dictation) Course - Vital Signs Last Recorded V/S: Last Vital Signs Temp 37.1 C 11/28/17 17:26 Pulse 105 H 11/28/17 17:26 Resp 18 11/28/17 17:26 BP 138/94 H 11/28/17 17:26 Pulse Ox 98 11/28/17 17:26 Orthostatic Blood Pressure [ 136/82 Standing] Orthostatic Blood Pressure [ 148/81 Sitting] Orthostatic Blood Pressure [ 140/81 Supine] - Orders/Labs/Meds Orders: Active Orders 24 hr Category Date Time Status Cardiac Monitoring [RC] . DIRECTED Care 11/28/17 17:50 Active EKG Documentation Completion [RC] STAT Care 11/28/17 17:50 Active Orthostatic Vital Signs [RC] ASDIRECTED Care 11/28/17 17:51 Active Oxygen Therapy, ED [RC] ASDIRECTED Care 11/28/17 17:50 Active Pulse Oximetry [RC] ASDIRECTED Care 11/28/17 17:50 Active Chest 1V Frontal [CR] Stat Exams 11/28/17 17:51 Taken Head wo Cont [CT] Stat Exams 11/28/17 17:50 Taken UA W/MICROSCOPIC [URIN] Stat Lab 11/28/17 17:55 Ordered Sodium Chloride 0.9% [Saline Flush] Med 11/28/17 17:51 Active 10 ml FLUSH ASDIRECTED PRN Sodium Chloride 0.9% [Saline Flush] Med 11/28/17 17:51 Active 2.5 ml FLUSH ASDIRECTED PRN Saline Lock Insert [OM.PC] Stat Oth 11/28/17 17:50 Ordered Medication Orders Sodium Chloride (Saline Flush) 10 ml FLUSH ASDIRECTED PRN PRN Reason: Keep Vein Open Sodium Chloride (Saline Flush) 2.5 ml FLUSH ASDIRECTED PRN PRN Reason: Keep Vein Open Labs: Laboratory Tests 11/28/17 11/28/17 11/28/17 Range/Units 17:42 17:42 17:55 WBC 8.23 (4.0-11.0) K/uL RBC 5.38 (4.50-5.90) M/uL Hgb 16.0 (13.0-17.0) g/dL Hct 45.0 (38.0-50.0) % MCV 83.6 (80.0-98.0) fL MCH 29.7 (27.0-32.0) pg MCHC 35.6 (31.0-37.0) g/dL RDW Std Deviation 38.2 (28.0-62.0) fl RDW Coeff of [place] 13 (11.0-15.0) % Plt Count 217 (150-400) K/uL MPV 10.80 (7.40-12.00) fL Neut % (Auto) 53.3 (48.0-80.0) % Lymph % (Auto) 36.6 (16.0-40.0) % [place] % (Auto) 8.0 (0.0-15.0) % Eos % (Auto) 1.6 (0.0-7.0) % Baso % (Auto) 0.5 (0.0-1.5) % Neut # (Auto) 4.4 (1.4-5.7) K/uL Lymph # (Auto) 3.0 H (0.6-2.4) K/uL [place] # (Auto) 0.7 (0.0-0.8) K/uL Eos # (Auto) 0.1 (0.0-0.7) K/uL Baso # (Auto) 0.0 (0.0-0.1) K/uL Nucleated RBC % 0.0 /100WBC Nucleated RBCs # 0 K/uL Sodium 137 (136-148) mmol/L Potassium 4.3 (3.5-5.1) mmol/L Chloride 102 (98-107) mmol/L Carbon Dioxide 25.2 (21.0-32.0) mmol/L BUN 16 (7.0-18.0) mg/dL Creatinine 1.1 (0.8-1.3) mg/dL Est Cr Clr Drug Dosing 117.03 mL/min Estimated GFR (MDRD) > 60.0 ml/min Glucose 103 (74-106) mg/dL Calcium 9.5 (8.5-10.1) mg/dL Magnesium 2.0 (1.8-2.4) mg/dL Total Bilirubin 0.6 (0.2-1.0) mg/dL AST 40 H (15-37) IU/L ALT 95 H (14-63) IU/L Alkaline Phosphatase 64 (46-116) U/L Troponin I < 0.050 (0.000-0.056) ng/mL Total Protein 8.3 H (6.4-8.2) g/dL Albumin 4.3 (3.4-5.0) g/dL Globulin 4.0 H (2.0-3.5) g/dL Albumin/Globulin Ratio 1.1 L (1.3-2.8) TSH 3rd Generation 3.06 (0.36-3.74) uIU/mL Urine Color YELLOW Urine Appearance CLEAR Urine pH 6.0 (5.0-8.0) Ur Specific [place] <= 1.005 (1.001-1.035) Urine Protein NEGATIVE (NEGATIVE) mg/dL Urine Glucose (UA) NEGATIVE (NEGATIVE) mg/dL Urine Ketones NEGATIVE (NEGATIVE) mg/dL Urine Occult Blood NEGATIVE (NEGATIVE) Urine Nitrite NEGATIVE (NEGATIVE) Urine Bilirubin NEGATIVE (NEGATIVE) Urine Urobilinogen 0.2 (<2.0) EU/dL Ur Leukocyte Esterase SMALL (NEGATIVE) Urine RBC 0-1 (0-2/HPF) Urine WBC 0-1 (0-5/HPF) Ur Epithelial Cells RARE (NONE-FEW) Urine Bacteria RARE (NEGATIVE) Meds: Medications Generic Name Dose Route Start Last Admin Trade Name Freq PRN Reason Stop Dose Admin Sodium Chloride 10 ml 11/28/17 17:51 Saline Flush FLUSH ASDIRECTED PRN Keep Vein Open Sodium Chloride 2.5 ml 11/28/17 17:51 Saline Flush FLUSH ASDIRECTED PRN Keep Vein Open Discontinued Medications Generic Name Dose Route Start Last Admin Trade Name Freq PRN Reason Stop Dose Admin Sodium Chloride 1,000 mls @ 999 mls/hr 11/28/17 17:51 11/28/17 17:58 Normal Saline IV 11/28/17 18:51 999 mls/hr STAT ONE Administration Departure - Departure Time of Disposition: 19:20 Disposition: Home, Self-Care 01 Condition: Good Clinical Impression: Palpitations, Lightheadedness Forms: ED Department Discharge Additional Instructions: The following information is given to patients seen in the emergency department who are being discharged to home. This information is to outline your options for follow-up care. We provide all patients seen in our emergency department with a follow-up referral. The need for follow-up, as well as the timing and circumstances, are variable depending upon the specifics of your emergency department visit. If you don't have a primary care physician on staff, we will provide you with a referral. We always advise you to contact your personal physician following an emergency department visit to inform them of the circumstance of the visit and for follow-up with them and/or the need for any referrals to a consulting specialist. The emergency department will also refer you to a specialist when appropriate. This referral assures that you have the opportunity for followup care with a specialist. All of these measure are taken in an effort to provide you with optimal care, which includes your followup. Under all circumstances we always encourage you to contact your private physician who remains a resource for coordinating your care. When calling for followup care, please make the office aware that this follow-up is from your recent emergency room visit. If for any reason you are refused follow-up, please contact the [facility] emergency department at and ask to speak to the emergency department charge nurse. [facility] Primary care- Internal Medicine [place] [address] Please keep your follow-up appointment with Dr. Pinto on Sunday and please go to have your Holter monitor placed as directed per the nursing staff tomorrow morning. Please push hydration and return to ER as needed and as discussed.. - My Orders Last 24 Hours: My Active Orders 11/28/17 17:50 Cardiac Monitoring [RC] . DIRECTED EKG Documentation Completion [RC] STAT Oxygen Therapy, ED [RC] ASDIRECTED Pulse Oximetry [RC] ASDIRECTED Head wo Cont [CT] Stat Saline Lock Insert [OM.PC] Stat 11/28/17 17:51 Orthostatic Vital Signs [RC] ASDIRECTED Chest 1V Frontal [CR] Stat Sodium Chloride 0.9% [Saline Flush] 10 ml FLUSH ASDIRECTED PRN Sodium Chloride 0.9% [Saline Flush] 2.5 ml FLUSH ASDIRECTED PRN 11/28/17 17:55 UA W/MICROSCOPIC [URIN] Stat - Assessment/Plan Last 24 Hours: My Active Orders 11/28/17 17:50 Cardiac Monitoring [RC] . DIRECTED EKG Documentation Completion [RC] STAT Oxygen Therapy, ED [RC] ASDIRECTED Pulse Oximetry [RC] ASDIRECTED Head wo Cont [CT] Stat Saline Lock Insert [OM.PC] Stat 11/28/17 17:51 Orthostatic Vital Signs [RC] ASDIRECTED Chest 1V Frontal [CR] Stat Sodium Chloride 0.9% [Saline Flush] 10 ml FLUSH ASDIRECTED PRN Sodium Chloride 0.9% [Saline Flush] 2.5 ml FLUSH ASDIRECTED PRN 11/28/17 17:55 UA W/MICROSCOPIC [URIN] Stat
[2017-11-28 18:28] LABS: CHLORIDE,CL 102 mmol/L (98-107); SODIUM,NA 137 mmol/L (136-148)
[2017-11-28 19:21] VITALS: BP 144/80
--- NOTE | 2017-11-29 08:45 | CR ---
EXAM DATE: 11/28/17 PATIENT'S AGE: 22 Patient: TIFFANIE ESPINOZA Facility: [place], [place] Site . Site : 1995 Study: XRay Chest [id number]/22/2018 6:42:14 PM Ordering Physician: Amarjit Marks Final Report: INDICATION: Lightheaded, tachycardia, shortness of breath TECHNIQUE: Chest radiograph 1 view COMPARISON: 06/25/17 FINDINGS: Mediastinum: The mediastinum is normal in appearance. The heart silhouette is normal in size and morphology. Lung: Both lungs are unremarkable in appearance. No sign of pleural effusion seen. No pneumothorax is identified. Musculoskeletal: Unremarkable for age. IMPRESSION: 1. No acute cardiopulmonary disease is seen. Dictated by: Fer Munoz MD @ 11/28/2017 18:43:52 (Electronic Signature) Report Signed by Proxy. [facility] SHOREReggie
--- NOTE | 2017-11-29 08:46 | CT ---
EXAM DATE: 11/28/17 PATIENT'S AGE: 22 Patient: TIFFANIE ESPINOZA Facility: [place], [place] Site . Site : 1995 Study: CT Head [id number]/22/2018 7:46:20 PM Ordering Physician: Amarjit Marks Final Report: INDICATION: Lightheadedness. Tachycardia TECHNIQUE: CT head without contrast. COMPARISON: None available FINDINGS: There is slight superior cerebellar cortical volume loss for the patient`s age. The ventricles are within normal limits. There is no mass effect or midline shift. There is no loss of jaramillo-white differentiation. There is no evidence of an acute intracranial hemorrhage. No acute calvarial fracture is seen. There is mucosal thickening in the posterior aspect of the right ethmoid sinus and opacification of the visualized portion of the right maxillary sinus. The mastoid air cells are clear. The visualized orbits are within normal limits. The adenoids are prominent. IMPRESSION: No evidence of an acute intracranial hemorrhage, mass effect or loss of jaramillo- white differentiation. Paranasal sinus disease. Dictated by Rj Calderon MD @ 11/28/2017 8:00:40 PM Please note that all CT scans at this facility use dose modulation, iterative reconstruction, and/or weight-based dosing when appropriate to reduce radiation dose to as low as reasonably achievable. Dictated by: Rj Calderon MD @ 11/28/2017 20:00:46 (Electronic Signature) Report Signed by Proxy. [facility]ENTER[facility]gie
== END 2017-11-28 20:31 | disposition home or self-care (01) ==
LOC: MW.RT 17:23 → MW.ED 17:23 → MW.RT 20:31
DX: R42 Dizziness and giddiness (principal); R00.2 Palpitations; J45.909 Unspecified asthma, uncomplicated; F41.9 Anxiety disorder, unspecified; F32.9 Major depressive disorder, single episode, unspecified; Z79.899 Other long term (current) drug therapy
CPT/HCPCS: 36415; 70450; 71045; 80053; 81001; 83735; 84443; 84484; 85025; 93005; 96360; 99285; J7040

== ENCOUNTER 2021-02-15 23:00 | Emergency (ER) | payer OTHER ==
[2021-02-15] MEDS ORDERED: Dextrose 5%-Lactated Ringers 1,000 ML IV SCH (23:45)
[2021-02-15] MEDS ORDERED: Ondansetron 4 MG/2 ML SDV IVPUSH ONE (23:54)
[2021-02-16 00:37] LABS: BLOOD UREA NITROGEN,BUN 14 mg/dL (7.0-18.0); CARBON DIOXIDE,CO2 26.3 mmol/L (21.0-32.0); CHLORIDE,CL 100 mmol/L (98-107); GLUCOSE RANDOM 115 mg/dL (74-106); POTASSIUM,K 3.8 mmol/L (3.5-5.1); SODIUM,NA 137 mmol/L (136-148)
[2021-02-16 01:47] VITALS: BP 116/65; PULSE 90
[2021-02-16] MEDS ORDERED: Ondansetron 4 MG/2 ML SDV IVPUSH ONE (02:01)
--- NOTE | 2021-02-16 02:03 | EDM.PDOC ---
ED HPI GENERAL MEDICAL PROBLEM - General Chief Complaint: Abdominal Pain Stated Complaint: COVID POSITIVE, VOMITTING Time Seen by Provider: 02/15/21 23:54 - History of Present Illness INITIAL COMMENTS - FREE TEXT/NARRATIVE: CHIEF COMPLAINT(S): Vomiting HISTORY OF PRESENT ILLNESS: This is a 25-year-old man who was recently diagnosed with COVID-19 who comes to the emergency department with a chief complaint of vomiting. The patient states he has been experiencing diffuse abdominal pain associated with nausea and vomiting which is nonbloody and nonbilious. He currently describes his pain as crampy pain. He rates it as 4-5 out of 10. He denies any melena, hematochezia, hematemesis or bilious emesis. He states that he has been unable to tolerate anything so there are no relieving factors. There were no exacerbating factors. He denies any lower extremity edema, recent travel, recent surgery or prior history of DVT or PE. He denies any shortness of breath. REVIEW OF SYSTEMS: Constitutional: Denies fever, chills. Eyes: Denies eye pain Ears, Nose, Mouth, & Throat: Denies earache Cardiovascular: Denies chest pain Respiratory: Denies shortness of breath Gastrointestinal: Positive for diffuse abdominal pain, nausea, vomiting. Denies diarrhea, hematochezia, hematemesis, bilious emesis, melena Genitourinary: Denies hematuria Skin:Denies a rash MSK: Denies joint pain Neurological: Denies blurred vision Psychiatric: Denies depression PAST MEDICAL HISTORY: As per history of present illness and as reviewed below otherwise noncontributory. SURGICAL HISTORY: As per history of present illness and as reviewed below otherwise noncontributory. SOCIAL HISTORY: As per history of present illness and as reviewed below otherwise noncontributory. FAMILY HISTORY: As per history of present illness and as reviewed below otherwise noncontributory. EXAMINATION OF ORGAN SYSTEMS/BODY AREAS: Constitutional: Blood pressure was 119/66, heart rate 110, respiratory rate 20 with an oxygen saturation 96% on room air. Temperature 35.9 General: Well-appearing man who is in no acute distress Psychiatric: Appropriate mood and affect. Eyes: No scleral icterus or conjunctival erythema ENMT: Moist mucous membranes. No pharyngeal erythema Cardiovascular: Regular, rate, and rhythm. No gallops, murmurs, or rubs. Bilateral upper extremity pulses symmetric and intact. No peripheral edema. No JVD. Respiratory: Lungs clear to auscultation bilaterally. No wheezes, rales, or rhonchi. Gastrointestinal: Soft, non-tender, non-distended. Normoactive bowel sounds no rebound or guarding. Genitourinary: No suprapubic tenderness Musculoskeletal: Normal range of motion. Skin: No lesions or abrasions. Neurological: Alert, GCS 15 MEDICAL DECISION MAKING AND COURSE IN THE ED WITH INTERPRETATION/REVIEW OF DIAGNOSTIC STUDIES: This is a 25-year-old man with a recent diagnosis of COVID- 19 who comes to the emergency department with diffuse abdominal pain associated with nausea and vomiting who is mildly tachycardic and appears nontoxic. At this time I do believe this is likely secondary to COVID-19. Obtain screening labs including CBC, CMP and provide the patient with Zofran, 1 L of D5 normal saline and reevaluate. DDx: COVID-19, gastroenteritis, dehydration, DKA Laboratory: CBC is unremarkable. CMP reveals hyperglycemia 115, hypocalcemia 8.3, elevation in ALT at 83 otherwise unremarkable. On reevaluation, the patient was able to tolerate p.o. and reported symptomatic improvement. At this time I did discuss that I would discharge him with Zofran. He is to return for any new or worsening symptoms. He was amenable to discharge and had no further questions DISPOSITION: The patient was discharged home in stable condition. The patient will follow up with primary care physician after his period of isolation CONDITION: Fair PROCEDURES: None FINAL IMPRESSION(S)/DIAGNOSES: 1. Acute vomiting likely viral secondary to COVID-19 Lino Kramer M.D. Abdominal Pain Score (Numeric/FACES): 9 - Related Data Allergies Allergy/AdvReac Type Severity Reaction Status Date / Time No Known Allergies Allergy Verified 02/17/21 23:50 Home Meds: Home Meds Desvenlafaxine Succinate [Pristiq] 150 mg PO DAILY 06/14/17 [History] Fluticasone/Vilanterol [Breo Ellipta 100-25 MCG Inhalation Kit] 1 puff INH DAILY 06/14/17 [History] Ondansetron [Zofran ODT] 4 mg PO Q6H PRN #8 tab.dis 02/16/21 [Rx] Promethazine HCl [Promethegan] 25 mg RC Q6HR #8 supp.rect 02/17/21 [Rx] lisinopriL [Lisinopril] 20 mg PO DAILY 02/17/21 [History] levoFLOXacin [Levaquin] 750 mg PO DAILY #4 tab 02/20/21 [Rx] Past Medical History HEENT History: Reports: Impaired Vision Cardiovascular History: Reports: None Respiratory History: Reports: Asthma Gastrointestinal History: Reports: None Genitourinary History: Reports: None Musculoskeletal History: Reports: None Neurological History: Reports: None Psychiatric History: Reports: Anxiety, Depression Endocrine/Metabolic History: Reports: None Hematologic History: Reports: None - Infectious Disease History Infectious Disease History: Reports: None - Past Surgical History GI Surgical History: Reports: None Male Surgical History: Reports: None Social & Family History - Family History Family Medical History: No Pertinent Family History - Tobacco Use Second Hand Smoke Exposure: No - Caffeine Use Caffeine Use: Reports: None - Recreational Drug Use Recreational Drug Use: No ED ROS GENERAL - Review of Systems Review Of Systems: See Below ED EXAM, GENERAL - Physical Exam Exam: See Below Course - Vital Signs Last Recorded V/S: Last Vital Signs Temp 35.9 C L 02/15/21 23:51 Pulse 90 02/16/21 01:47 Resp 18 02/16/21 01:47 BP 116/65 02/16/21 01:47 Pulse Ox 97 02/16/21 01:47 - Orders/Labs/Meds Labs: Laboratory Tests 02/16/21 02/16/21 02/16/21 Range/Units 00:01 00:01 00:10 WBC 4.03 (4.0-11.0) K/uL RBC 5.45 (4.50-5.90) M/uL Hgb 15.8 (13.0-17.0) g/dL Hct 45.9 (38.0-50.0) % MCV 84.2 (80.0-98.0) fL MCH 29.0 (27.0-32.0) pg MCHC 34.4 (31.0-37.0) g/dL RDW Std Deviation 39.3 (28.0-62.0) fl RDW Coeff of Alfredito 13 (11.0-15.0) % Plt Count 154 (150-400) K/uL MPV 10.10 (7.40-12.00) fL Neut % (Auto) 65.4 (48.0-80.0) % Lymph % (Auto) 24.3 (16.0-40.0) % [place] % (Auto) 9.9 (0.0-15.0) % Eos % (Auto) 0.2 (0.0-7.0) % Baso % (Auto) 0.2 (0.0-1.5) % Neut # (Auto) 2.6 (1.4-5.7) K/uL Lymph # (Auto) 1.0 (0.6-2.4) K/uL [place] # (Auto) 0.4 (0.0-0.8) K/uL Eos # (Auto) 0.0 (0.0-0.7) K/uL Baso # (Auto) 0.0 (0.0-0.1) K/uL Nucleated RBC % 0.0 /100WBC Nucleated RBCs # 0 K/uL Sodium 137 (136-148) mmol/L Potassium 3.8 (3.5-5.1) mmol/L Chloride 100 (98-107) mmol/L Carbon Dioxide 26.3 (21.0-32.0) mmol/L BUN 14 (7.0-18.0) mg/dL Creatinine 1.3 (0.8-1.3) mg/dL Est Cr Clr Drug Dosing 96.46 mL/min Estimated GFR (MDRD) > 60.0 ml/min Glucose 115 H (74-106) mg/dL POC Glucose 110 H (70-99) mg/dL Calcium 8.3 L (8.5-10.1) mg/dL Total Bilirubin 0.6 (0.2-1.0) mg/dL AST 37 (15-37) IU/L ALT 83 H (14-63) IU/L Alkaline Phosphatase 54 (46-116) U/L Total Protein 8.1 (6.4-8.2) g/dL Albumin 3.6 (3.4-5.0) g/dL Globulin 4.5 H (2.6-4.0) g/dL Albumin/Globulin Ratio 0.8 L (0.9-1.6) Meds: Medications Discontinued Medications Generic Name Dose Route Start Last Admin Trade Name Freq PRN Reason Stop Dose Admin Dextrose/Lactated Ringer's 1,000 mls @ 999 mls/hr 02/15/21 23:45 02/16/21 00:11 Dextrose 5%-Lactated Ringers IV 999 mls/hr ASDIRECTED GLENYS Administration Ondansetron HCl 4 mg 02/15/21 23:54 02/16/21 00:10 Ondansetron 4 Mg/2 Ml Sdv IVPUSH 02/15/21 23:55 4 mg ONETIME ONE Administration Ondansetron HCl 4 mg 02/16/21 02:01 02/16/21 02:09 Ondansetron 4 Mg/2 Ml Sdv IVPUSH 02/16/21 02:02 4 mg ONETIME ONE Administration Departure - Departure Time of Disposition: 02:02 Disposition: Home, Self-Care 01 Condition: Fair Clinical Impression: Vomiting - Discharge Information *PRESCRIPTION DRUG MONITORING PROGRAM REVIEWED*: No *COPY OF PRESCRIPTION DRUG MONITORING REPORT IN PATIENT JENNIFER: No Prescriptions: Ondansetron [Zofran ODT] 4 mg PO Q6H PRN #8 tab.dis PRN Reason: Nausea/Vomiting Instructions: Nausea and Vomiting, Adult Referrals: Maxi Pinto MD [Primary Care Provider] - Forms: ED Department Discharge Additional Instructions: You were evaluated today on an emergent basis. At this time we did provide you with some fluids and antinausea medication. Your labs are all within normal limits. I do recommend that you use Zofran as needed every 6 hours for nausea. If any worsening symptoms I like you to return to the emergency department. Otherwise follow-up with your primary care physician after isolation.. [facility] - [facility] [address] [place] [address] [id number] [address] The patient is informed of any results of their evaluation and diagnostic workup and all questions are answered. They are given discharge instructions and return precautions. The patient is stable for discharge. The patient states they understand and agree with the plan and that they will return if their symptoms get worse or if they have any new concerns. The following information is given to patients seen in the emergency department who are being discharged to home. This information is to outline your options for follow-up care. We provide all patients seen in our emergency department with a follow-up referral. The need for follow-up, as well as the timing and circumstances, are variable depending upon the specifics of your emergency department visit. If you don't have a primary care physician on staff, we will provide you with a referral. We always advise you to contact your personal physician following an emergency department visit to inform them of the circumstance of the visit and for follow-up with them and/or the need for any referrals to a consulting specialist. The emergency department will also refer you to a specialist when appropriate. This referral assures that you have the opportunity for follow-up care with a specialist. All of these measure are taken in an effort to provide you with optimal care, which includes your follow-up. Under all circumstances we always encourage you to contact your private physician who remains a resource for coordinating your care. When calling for follow-up care, please make the office aware that this follow-up is from your recent emergency room visit. If for any reason you are refused follow-up, please contact the [facility] Emergency Department at and asked to speak to the emergency department charge nurse. Sepsis Event Note (ED) - Evaluation Sepsis Screening Result: No Definite Risk
== END 2021-02-16 02:15 | disposition home or self-care (01) ==
LOC: MW.ED 23:00
DX: R11.2 Nausea with vomiting, unspecified (principal); Z86.16 Personal history of COVID-19; Z79.899 Other long term (current) drug therapy
CPT/HCPCS: 36415; 80053; 82947; 85025; 96374; 96376; 99284; J2405; J7121

== ENCOUNTER 2021-02-17 05:55 | Emergency (ER) | payer OTHER ==
[2021-02-17] MEDS ORDERED: Haloperidol Lactate 5 MG/ML SDV IM ONE (06:11)
[2021-02-17] MEDS ORDERED: Ketorolac 15 MG/ML SDV IVPUSH ONE (06:11)
[2021-02-17] MEDS ORDERED: diphenhydrAMINE 50 MG/ML SDV IVPUSH ONE (06:11)
[2021-02-17] MEDS ORDERED: Dextrose 5%-Lactated Ringers 1,000 ML IV SCH (06:15)
[2021-02-17] MEDS ORDERED: Pantoprazole 80 MG in Sodium Chloride 0.9% 20 ML IVPUSH ONE (06:29)
[2021-02-17] MEDS ORDERED: Alum Hydro/Mag Hydro/Simeth XS 15 ML, Lidocaine 2% 5 ML PO ONE ×2 (06:29)
[2021-02-17] MEDS ORDERED: Famotidine 20 MG/2 ML SDV IVPUSH ONE (06:29)
--- NOTE | 2021-02-17 06:32 | EDM.PDOC ---
<Lino Kramer - Last Filed: 02/17/21 06:52> ED HPI GENERAL MEDICAL PROBLEM - General Chief Complaint: Gastrointestinal Problem Stated Complaint: THROWING UP/FEVER ON AND OFF, BODY ACHES, CHILLS Time Seen by Provider: 02/17/21 06:04 - History of Present Illness INITIAL COMMENTS - FREE TEXT/NARRATIVE: CHIEF COMPLAINT(S): Vomiting HISTORY OF PRESENT ILLNESS: This is a 25-year-old man with a recent diagnosis of COVID-19 and recent emergency department visit who was evaluated by myself who comes to the emergency department with a chief complaint of vomiting. The patient states that since discharge he has attempted to use the Zofran for the vomiting however he continues to have vomiting. He states that he does have some mid abdominal pain which he describes as acid-like. He denies any hemat emesis or bilious emesis. He currently rates his pain as 4-5 out of 10. He denies any radiation of this pain. He states that there are no relieving factors and he does not have any exacerbating factors. In the interim he states that he started to experience some diarrhea which is nonbloody and nonmelanotic. He had some chest tightness yesterday but denies any chest pain and denies any increased productive cough. He denies any shortness of breath. He denies any lower extremity edema, recent travel, recent surgery or prior history of DVT or PE. He states that mainly he just cannot keep anything down. REVIEW OF SYSTEMS: Constitutional: Denies fever, chills. Eyes: Denies eye pain Ears, Nose, Mouth, & Throat: Denies earache Cardiovascular: Positive for intermittent chest tightness. Denies chest pain Respiratory: Denies shortness of breath Gastrointestinal: Positive for abdominal pain, nausea, vomiting, diarrhea. Denies hematemesis, bilious emesis, melena or hematochezia. Genitourinary: Denies hematuria Skin:Denies a rash MSK: Denies joint pain Neurological: Denies blurred vision Psychiatric: Denies depression PAST MEDICAL HISTORY: As per history of present illness and as reviewed below otherwise noncontributory. SURGICAL HISTORY: As per history of present illness and as reviewed below otherwise noncontributory. SOCIAL HISTORY: As per history of present illness and as reviewed below otherwise noncontributory. FAMILY HISTORY: As per history of present illness and as reviewed below otherwise noncontributory. EXAMINATION OF ORGAN SYSTEMS/BODY AREAS: Constitutional: Blood pressure was 115/67, heart rate 93, respiratory rate 18 with an oxygen saturation 94% on room air. Temperature 36.4. General: Young man who does not appear to be in acute distress Psychiatric: Appropriate mood and affect. Eyes: No scleral icterus or conjunctival erythema ENMT: Dry mucous membranes. No pharyngeal erythema. Cardiovascular: Regular, rate, and rhythm. No gallops, murmurs, or rubs. Bilateral upper extremity pulses symmetric and intact. No peripheral edema. No JVD. Respiratory: Lungs clear to auscultation bilaterally. No wheezes, rales, or rhonchi. Gastrointestinal: Soft, minimal tenderness to palpation throughout the abdomen, nondistended. No rebound or guarding. Negative Sutton's and McBurney's. Normoactive bowel sounds Genitourinary: No suprapubic tenderness Musculoskeletal: Normal range of motion. Skin: No lesions or abrasions. Neurological: Alert, GCS 15 MEDICAL DECISION MAKING AND COURSE IN THE ED WITH INTERPRETATION/REVIEW OF DIAGNOSTIC STUDIES: This is a 25-year-old man with a recent diagnosis of COVID- 19 and recent emergency department visit who is evaluated by myself who comes to the emergency department with continued vomiting and inability to tolerate p.o. who is borderline hypoxic as compared to his prior visit. At this time we will attempt symptomatic care at this time and provide the patient with Haldol, Benadryl, 1 L of D5 LR. Will obtain labs including CBC, CMP and lipase. In addition we will obtain a screening EKG to evaluate for any signs of pericarditis or myocarditis. Will obtain a troponin. Will obtain a CT angiogram of the chest to evaluate for pulmonary embolism given his decreased oxygen. We will reevaluate for p.o. toleration and final disposition. EKG did not reveal any acute signs of ischemia or signs of pericarditis DDx: Pulmonary embolism, dehydration, myocarditis, pericarditis Laboratory: CBC reveals leukopenia with a white blood cell count of 3.84 otherwise unremarkable. CMP reveals hyperglycemia at 125, hypocalcemia at 8.3, elevation in ALT at 79 otherwise unremarkable. Lipase is normal. At the time of signout patient was pending reevaluation, CT angiogram and troponin level. DISPOSITION: [facility] pending reevaluation and final disposition CONDITION: Fair PROCEDURES: None FINAL IMPRESSION(S)/DIAGNOSES: 1. Acute vomiting 2. Acute abdominal pain Lino Kramer M.D. - Related Data Allergies Allergy/AdvReac Type Severity Reaction Status Date / Time No Known Allergies Allergy Verified 02/17/21 06:13 Home Meds: Home Meds ALPRAZolam [Xanax XR] 1 mg PO DAILY PRN 06/14/17 [History] Desvenlafaxine Succinate [Pristiq ER] 100 mg PO DAILY 06/14/17 [History] Fluticasone/Vilanterol [Breo Ellipta 100-25 MCG Inhalation Kit] 1 puff INH DAILY 06/14/17 [History] Ondansetron [Zofran ODT] 4 mg PO Q6H PRN #8 tab.dis 02/16/21 [Rx] lisinopriL [Lisinopril] 20 mg PO DAILY 02/17/21 [History] Past Medical History HEENT History: Reports: Impaired Vision Cardiovascular History: Reports: None Respiratory History: Reports: Asthma Gastrointestinal History: Reports: None Genitourinary History: Reports: None Musculoskeletal History: Reports: None Neurological History: Reports: None Psychiatric History: Reports: Anxiety, Depression Endocrine/Metabolic History: Reports: None Hematologic History: Reports: None - Infectious Disease History Infectious Disease History: Reports: None - Past Surgical History GI Surgical History: Reports: None Male Surgical History: Reports: None Social & Family History - Family History Family Medical History: No Pertinent Family History - Caffeine Use Caffeine Use: Reports: None ED ROS GENERAL - Review of Systems Review Of Systems: See Below ED EXAM, GENERAL - Physical Exam Exam: See Below Departure - Departure Disposition: Home, Self-Care 01 Clinical Impression: Vomiting, Diarrhea, COVID-19 - Discharge Information Instructions: Nausea and Vomiting, Adult, COVID-19: What to Do If You Are Sick- [facility] (06/23/2020) Referrals: Maxi Pinto MD [Primary Care Provider] - Forms: ED Department Discharge Additional Instructions: Return for inability to tolerate fluids, lightheadedness, shortness of breath, any change or worsening condition. Use Phenergan survives a Dooley for vomiting. - --------- The following information is given to patients seen in the emergency department who are being discharged to home. This information is to outline your options for follow-up care. We provide all patients seen in our emergency department with a follow-up referral. The need for follow-up, as well as the timing and circumstances, are variable depending upon the specifics of your emergency department visit. If you don't have a primary care physician on staff, we will provide you with a referral. We always advise you to contact your personal physician following an emergency department visit to inform them of the circumstance of the visit and for follow-up with them and/or the need for any referrals to a consulting specialist. The emergency department will also refer you to a specialist when appropriate. This referral assures that you have the opportunity for follow-up care with a specialist. All of these measure are taken in an effort to provide you with optimal care, which includes your follow-up. Primary care clinics in the area: [facility] [address] [place] [address] [place] [address] Under all circumstances we always encourage you to contact your private physician who remains a resource for coordinating your care. When calling for follow-up care, please make the office aware that this follow-up is from your recent emergency room visit. If for any reason you are refused follow-up, please contact the [facility] Emergency Department at and asked to speak to the emergency department charge nurse. Sepsis Event Note (ED) - Evaluation Sepsis Screening Result: No Definite Risk <Bryce Denny - Last Filed: 02/17/21 11:35> #2 Interpretation Time: 07:36 EKG Interpretation Comments: 85, normal sinus rhythm, nonspecific ST/T findings. QTc interval 447 Course - Vital Signs Text/Narrative:: Patient presents in the setting of Covid with vomiting and some diarrhea. Mostly vomiting. The patient's respiratory status is acceptable without marked hypoxia or respiratory distress. Patient received IV fluids in the emergency department. Patient initially had a prolonged QT with his fast heart rate was given some magnesium. There was some vasodilation and mild hypotension after this. Patient had this stopped and gave another liter fluid with blood pressures taken by myself of 113 systolic. Repeat EKG shows no prolonged QT interval. Patient be sent home on Phenergan suppositories with return precautions Last Recorded V/S: Last Vital Signs Temp 36.4 C 02/17/21 06:05 Pulse 85 02/17/21 10:54 Resp 15 02/17/21 07:05 BP 103/56 L 02/17/21 10:54 Pulse Ox 94 L 02/17/21 10:54 - Orders/Labs/Meds Orders: Active Orders 24 hr Category Date Time Status Dextrose 5%-Lactated Ringers 1,000 ml Med 02/17/21 06:15 Active IV ASDIRECTED Sodium Chloride 0.9% [Normal Saline] 1,000 ml Med 02/17/21 10:45 Active IV .BOLUS Medication Orders Dextrose/Lactated Ringer's (Dextrose 5%-Lactated Ringers) 1,000 mls @ 999 mls/hr IV ASDIRECTED GLENYS Last Admin: 02/17/21 06:23 Dose: 999 mls/hr Documented by: ELISA Sodium Chloride (Normal Saline) 1,000 mls @ 999 mls/hr IV .BOLUS ONE Stop: 02/17/21 11:45 Last Admin: 02/17/21 10:51 Dose: 999 mls/hr Documented by: RONAN Labs: Laboratory Tests 02/17/21 02/17/21 Range/Units 06:05 06:05 WBC 3.84 L (4.0-11.0) K/uL RBC 5.23 (4.50-5.90) M/uL Hgb 15.1 (13.0-17.0) g/dL Hct 44.2 (38.0-50.0) % MCV 84.5 (80.0-98.0) fL MCH 28.9 (27.0-32.0) pg MCHC 34.2 (31.0-37.0) g/dL RDW Std Deviation 39.9 (28.0-62.0) fl RDW Coeff of Alfredito 13 (11.0-15.0) % Plt Count 168 (150-400) K/uL MPV 9.90 (7.40-12.00) fL Neut % (Auto) 68.8 (48.0-80.0) % Lymph % (Auto) 22.4 (16.0-40.0) % [place] % (Auto) 8.3 (0.0-15.0) % Eos % (Auto) 0.0 (0.0-7.0) % Baso % (Auto) 0.5 (0.0-1.5) % Neut # (Auto) 2.6 (1.4-5.7) K/uL Lymph # (Auto) 0.9 (0.6-2.4) K/uL [place] # (Auto) 0.3 (0.0-0.8) K/uL Eos # (Auto) 0.0 (0.0-0.7) K/uL Baso # (Auto) 0.0 (0.0-0.1) K/uL Nucleated RBC % 0.0 /100WBC Nucleated RBCs # 0 K/uL Sodium 138 (136-148) mmol/L Potassium 3.5 (3.5-5.1) mmol/L Chloride 101 (98-107) mmol/L Carbon Dioxide 25.0 (21.0-32.0) mmol/L BUN 14 (7.0-18.0) mg/dL Creatinine 1.1 (0.8-1.3) mg/dL Est Cr Clr Drug Dosing 110.72 mL/min Estimated GFR (MDRD) > 60.0 ml/min Glucose 125 H (74-106) mg/dL Calcium 8.3 L (8.5-10.1) mg/dL Magnesium 2.0 (1.8-2.4) mg/dL Total Bilirubin 0.5 (0.2-1.0) mg/dL AST 36 (15-37) IU/L ALT 79 H (14-63) IU/L Alkaline Phosphatase 54 (46-116) U/L Troponin I < 0.050 (0.000-0.056) ng/mL Total Protein 8.0 (6.4-8.2) g/dL Albumin 3.4 (3.4-5.0) g/dL Globulin 4.6 H (2.6-4.0) g/dL Albumin/Globulin Ratio 0.7 L (0.9-1.6) Lipase 183 (73-393) U/L Meds: Medications Generic Name Dose Route Start Last Admin Trade Name Freq PRN Reason Stop Dose Admin Dextrose/Lactated Ringer's 1,000 mls @ 999 mls/hr 02/17/21 06:15 02/17/21 06:23 Dextrose 5%-Lactated Ringers IV 999 mls/hr ASDIRECTED GLENYS Administration Sodium Chloride 1,000 mls @ 999 mls/hr 02/17/21 10:45 02/17/21 10:51 Normal Saline IV 02/17/21 11:45 999 mls/hr .BOLUS ONE Administration Discontinued Medications Generic Name Dose Route Start Last Admin Trade Name Freq PRN Reason Stop Dose Admin Alum Archbold/Mag Archbold/Simeth XS 0 ml 02/17/21 06:29 02/17/21 06:44 15 ml/ Lidocaine HCl 5 ml PO 02/17/21 06:30 20 each ONETIME ONE Administration Diphenhydramine HCl 25 mg 02/17/21 06:11 02/17/21 06:25 Diphenhydramine 50 Mg/Ml Sdv IVPUSH 02/17/21 06:12 25 mg ONETIME ONE Administration Famotidine 20 mg 02/17/21 06:29 02/17/21 06:44 Famotidine 20 Mg/2 Ml Sdv IVPUSH 02/17/21 06:30 20 mg ONETIME ONE Administration Haloperidol Lactate 2.5 mg 02/17/21 06:11 02/17/21 06:30 Haloperidol Lactate 5 Mg/Ml Sdv IM 02/17/21 06:12 2.5 mg ONETIME ONE Administration Pantoprazole Sodium 80 mg/ 20 mls @ 420 mls/hr 02/17/21 06:29 02/17/21 06:49 Sodium Chloride IVPUSH 02/17/21 06:31 420 mls/hr ONETIME ONE Administration Sodium Chloride Confirm 02/17/21 06:49 02/17/21 06:55 Normal Saline Administered 02/17/21 06:50 Not Given Dose 20 mls @ as directed .ROUTE .STK-MED ONE Magnesium Sulfate 2 gm/ Premix 50 mls @ 12.5 mls/hr 02/17/21 06:56 02/17/21 07:19 IV 02/17/21 10:55 12.5 mls/hr ONETIME ONE Administration Iopamidol 100 ml 02/17/21 07:13 02/17/21 07:13 Iopamidol 755 Mg/Ml 500 Ml Multipack Bottle IVPUSH 02/17/21 07:14 100 ml ONETIME STA Administration Ketorolac Tromethamine 15 mg 02/17/21 06:11 02/17/21 06:23 Ketorolac 15 Mg/Ml Sdv IVPUSH 02/17/21 06:12 15 mg ONETIME ONE Administration Metoclopramide HCl 10 mg 02/17/21 10:45 02/17/21 10:51 Metoclopramide 10 Mg/2 Ml Sdv IVPUSH 02/17/21 10:46 10 mg ONETIME ONE Administration Pantoprazole Sodium Confirm 02/17/21 06:48 02/17/21 06:55 Pantoprazole 40 Mg Vial Administered 02/17/21 06:49 Not Given Dose 40 mg .ROUTE .STK-MED ONE Departure - Departure Time of Disposition: 11:34 Condition: Good Sepsis Event Note (ED) - Focused Exam Vital Signs: Vital Signs Temp Pulse Resp BP Pulse Ox 02/17/21 10:54 85 103/56 L 94 L 02/17/21 10:40 87 95/54 L 94 L 02/17/21 09:25 87 96/55 L 95 02/17/21 08:27 88/43 L 02/17/21 08:03 94/57 L 02/17/21 07:05 99 15 105/51 L 95 02/17/21 06:05 36.4 C 93 18 115/67 94 L - My Orders Last 24 Hours: My Active Orders 02/17/21 10:45 Sodium Chloride 0.9% [Normal Saline] 1,000 ml IV .BOLUS - Assessment/Plan Last 24 Hours: My Active Orders 02/17/21 10:45 Sodium Chloride 0.9% [Normal Saline] 1,000 ml IV .BOLUS
[2021-02-17] MEDS ORDERED: Pantoprazole 40 MG Vial ONE (06:48)
[2021-02-17 06:49] LABS: BLOOD UREA NITROGEN,BUN 14 mg/dL (7.0-18.0); CHLORIDE,CL 101 mmol/L (98-107); GLUCOSE RANDOM 125 mg/dL (74-106); LIPASE 183 U/L (73-393); POTASSIUM,K 3.5 mmol/L (3.5-5.1); SODIUM,NA 138 mmol/L (136-148)
[2021-02-17] MEDS ORDERED: Sodium Chloride 0.9% 20 ML ONE (06:49)
--- NOTE | 2021-02-17 06:51 | PCM.EKG ---
#1 Interpretation EKG Date: 02/17/21 Time: 06:33 Rhythm: NSR Rate (Beats/Min): 98 Goff: Normal P-Wave: Present QRS: Normal ST-T: Normal QT: Prolonged Comparison: Change From Previous EKG (11/28/17) EKG Interpretation Comments: Sinus rhythm with prolonged QTC
[2021-02-17] MEDS ORDERED: Magnesium Sulfate/Water 2 GM in Premix Bag 1 BAG IV ONE (06:56)
[2021-02-17] MEDS ORDERED: Iopamidol 755 MG/ML 500 ML Multipack Bottle IVPUSH STA (07:13)
--- NOTE | 2021-02-17 07:58 | CT ---
Indication: Hypoxia, evaluate for pulmonary emboli. Technique: Volumetric multidetector CT images of the chest were obtained after the administration of IV contrast. 100 cc Isovue 370 low osmolar intravenous contrast Comparison: CTA chest August 10, 2016 Findings: The thoracic inlet and thyroid gland are unremarkable. The thoracic aorta is nonaneurysmal. There is no central filling defect to suggest pulmonary embolism. There are reactive mediastinal and hilar lymph nodes. The trachea and bronchi are well aerated without significant bronchiectasis. There are scattered airspace and ground-glass opacities within the bilateral hemithoraces predominantly in the left lower lobe likely representing multifocal infiltrates. There is no pneumothorax or pleural effusion. There is no evidence of pulmonary mass or suspicious pulmonary nodule. The partially visualized upper abdomen demonstrates moderate hepatomegaly and hepatic steatosis. The spleen demonstrates moderate enlargement measuring 15 centimeters. The thoracic vertebral body heights remain intact alignment without significant degenerative change or acute osseous abnormality. Impression: Patchy airspace opacities in the bilateral hemithoraces and reactive lymph nodes commensurate with [id number] multifocal coronal virus pneumonia. No evidence of pulmonary embolus. Please note that all CT scans at this facility use dose modulation, iterative reconstruction, and/or weight-based dosing when appropriate to reduce radiation dose to as low as reasonably achievable. Dictated by Terry Lopez MD @ 02/17/2021 7:55:44 AM (Electronically Signed)
[2021-02-17] MEDS ORDERED: Sodium Chloride 0.9% 1,000 ML IV ONE (10:45)
[2021-02-17] MEDS ORDERED: Metoclopramide 10 MG/2 ML SDV IVPUSH ONE (10:45)
[2021-02-17 12:01] VITALS: BP 119/65; PULSE 100
--- NOTE | 2021-02-18 19:05 | PCM.EKG ---
#1 Interpretation Time: 07:36 EKG Interpretation Comments: EKG: NSR, nonspecific ST/T changes, Rate -85 ;normal QtC interval
== END 2021-02-17 12:01 | disposition home or self-care (01) ==
LOC: MW.ED 05:55
DX: R11.10 Vomiting, unspecified (principal); R19.7 Diarrhea, unspecified; R10.9 Unspecified abdominal pain; U07.1 COVID-19; Z79.899 Other long term (current) drug therapy
CPT/HCPCS: 71275; 80053; 83690; 83735; 84484; 85025; 96365; 96375; 99284; A9270; C9113; J1200; J1630; J1885; J2765; J3475; J3490; J7030; J7121; Q9967

== ENCOUNTER 2021-02-17 16:31 | Emergency (ER) | payer OTHER ==
--- NOTE | 2021-02-17 16:43 | EDM.PDOC ---
ED HPI GENERAL MEDICAL PROBLEM - General Chief Complaint: Respiratory Problem Stated Complaint: COVID POS Time Seen by Provider: 02/17/21 16:42 Source of Information: Reports: Patient History Limitations: Reports: No Limitations - History of Present Illness INITIAL COMMENTS - FREE TEXT/NARRATIVE: HISTORY AND PHYSICAL: History of present illness: Patient is a 25-year-old male who presents to the emergency room with known COVID-19 with concerns of generalized weakness and decreased appetite. Patient was seen in our emergency department earlier this morning and was evaluated for nausea, vomiting and abdominal pain. He was given IV fluids and prescribe Zofran ODT. He states he did feel somewhat improved after being discharged but since has not attempted to eat or drink. He states he did take a Zofran ODT while at home and "it worked somewhat" but he does not feel improved. He spoke with his grandmother who is a nurse, she recommended he ask about the monoclonal antibody therapy. Patient denies any fever, chills, headache, change in vision, syncope or near syncope. Denies any chest pain, back pain, shortness of breath or cough. Denies any abdominal pain, diarrhea, constipation or dysuria. Has not noted any blood in urine or stool. Patient has been eating and drinking appropriately. No recent travel or sick contacts. Review of systems: As per history of present illness and below otherwise all systems reviewed and negative. Past medical history: As per history of present illness and as reviewed below otherwise noncontributory. Surgical history: As per history of present illness and as reviewed below otherwise noncontributory. Social history: See social history for further information Family history: As per history of present illness and as reviewed below otherwise noncontributory. Physical exam: General: Well developed and well nourished 25-year-old male. Alert and orientated x 3. Nontoxic in appearance and in no acute distress. Vital signs are stable and have been reviewed by me. Nursing notes were reviewed. HEENT: Atraumatic, normocephalic, pupils equal and reactive bilaterally, negative for conjunctival pallor or scleral icterus, mucous membranes moist, TMs normal bilaterally, throat clear, neck supple, nontender, trachea midline. No drooling or trismus noted. No meningeal signs. No hot potato voice noted. Lungs: Clear to auscultation bilaterally. No wheezes, rales, or rhonchi. Chest nontender. Normal work of breathing, no accessory muscles used. Heart: S1S2, regular rate and rhythm without overt murmur, gallops, or rubs. No JVD. No peripheral edema Abdomen: Soft, nondistended, nontender. Normoactive bowel sounds. Negative for masses or costovertebral tenderness. Skin: Intact, warm, dry. No lesions or rashes noted. Hematologic: No petechiae or purpra. Mucosa appropriate color and normal nail bed color and refill. Extremities: Atraumatic, moves all extremities per self without difficulty or deficits, negative for cords or calf pain. Neurovascular unremarkable. Neuro: Awake, alert, oriented. Cranial nerves II through XII unremarkable. Cerebellum unremarkable. Motor and sensory unremarkable throughout. Exam nonf ocal. Psychiatric: Mood and affect are appropriate. Normal thought process. Answering questions appropriately. Please note that the patient was seen and evaluated during the 2019 SARS-CoV-2 novel coronavirus pandemic period. Community viral transmission is ongoing at time of this encounter and the emergency department is operating under pandemic response procedures. Medical Decision Making: Patient is a 25-year-old male who presents to the emergency room with concerns of not feeling improved after evaluated earlier this morning for nausea and vomiting. He states he did take a Zofran ODT and felt that it did make him less nauseated. He is concerned as he still has weakness and "no nutrition". I did spend several minutes talking with the patient about expectations of his ER visits with the diagnosis of COVID-19. I did offer to repeat lab work which he declines. Patient is not a candidate for monoclonal antibody therapy as he has no comorbidities or qualifying factors. Patient states he would like to try liquids while here and be reassessed with likelihood of being discharged home with thorough education. 02/17/21 @ 4315: CT chest shows patchy airspace opacities in the bilateral hemithoraces and reactive lymph nodes commensurate with [id number] multifocal coronal virus pneumonia. No evidence of pulmonary embolus. Lab work that was done earlier this morning shows no significant or concerning findings. Vital signs are stable. Patient is tolerating fluids while here. I have talked with the patient about today's findings, in addition to providing specific deta ils for plan of care. Reassessment at the time of disposition demonstrates that the patient is in no acute distress. The patient is stable for discharge, counseling was provided and we discussed in great detail signs and symptoms that would prompt them to return to the Emergency Department. Medication, follow up and supportive care measures were reviewed and discussed. Voices understanding and is agreeable to plan of care. Denies any further questions or concerns at this time. Diagnostics: Declines Therapeutics: PO challenge Prescription: None Impression: COVID-19 Plan: 1. You were evaluated today on an emergent basis. You need to try to take small frequent sips of fluids, soups, gatorade etc... to prevent dehydration. Your labs and CT scan that were done this morning show no acute or concerning findings. Vitals are within normal limits. 2. You can alternate Tylenol and ibuprofen as needed for pain and fever management. 3. We encourage you to follow up with your primary care provider and/or recommended specialist in the next few days for re-evaluation and further care/management. 4. If your symptoms should worsen, new symptoms develop or any of the signs and symptoms we discussed should arise please return to the emergency room or call 911 (if needed). Definitive disposition and diagnosis as appropriate pending reevaluation and review of above. Generalized Pain Score (Numeric/FACES): 6 - Related Data Allergies Allergy/AdvReac Type Severity Reaction Status Date / Time No Known Allergies Allergy Verified 02/17/21 06:13 Home Meds: Home Meds ALPRAZolam [Xanax XR] 1 mg PO DAILY PRN 06/14/17 [History] Desvenlafaxine Succinate [Pristiq ER] 100 mg PO DAILY 06/14/17 [History] Fluticasone/Vilanterol [Breo Ellipta 100-25 MCG Inhalation Kit] 1 puff INH DAILY 06/14/17 [History] Ondansetron [Zofran ODT] 4 mg PO Q6H PRN #8 tab.dis 02/16/21 [Rx] Promethazine HCl [Promethegan] 25 mg RC Q6HR #8 supp.rect 02/17/21 [Rx] lisinopriL [Lisinopril] 20 mg PO DAILY 02/17/21 [History] Past Medical History HEENT History: Reports: Impaired Vision Cardiovascular History: Reports: Hypertension Respiratory History: Reports: Asthma Gastrointestinal History: Reports: None Genitourinary History: Reports: None Musculoskeletal History: Reports: None Neurological History: Reports: None Psychiatric History: Reports: Anxiety, Depression Endocrine/Metabolic History: Reports: None Hematologic History: Reports: None Immunologic History: Reports: None Oncologic (Cancer) History: Reports: None Dermatologic History: Reports: None - Infectious Disease History Infectious Disease History: Reports: None - Past Surgical History GI Surgical History: Reports: None Male Surgical History: Reports: None Social & Family History - Family History Family Medical History: No Pertinent Family History - Caffeine Use Caffeine Use: Reports: None ED ROS GENERAL - Review of Systems Review Of Systems: Comprehensive ROS is negative, except as noted in HPI. ED EXAM, GENERAL - Physical Exam Exam: See Below (See dictation) Course - Vital Signs Last Recorded V/S: Last Vital Signs Temp 100.5 F 02/17/21 16:43 Pulse 115 H 02/17/21 16:43 Resp 18 02/17/21 16:43 BP 127/67 02/17/21 16:43 Pulse Ox 94 L 02/17/21 16:43 - Orders/Labs/Meds Orders: Active Orders 24 hr Category Date Time Status Communication Order [RC] STAT Care 02/17/21 16:51 Active Departure - Departure Time of Disposition: 17:11 Disposition: Home, Self-Care 01 Clinical Impression: COVID-19 - Discharge Information Instructions: 10 Things You Can Do to Manage Your COVID-19 Symptoms at Home - [facility] (10/22/2020) Referrals: Maxi Pinto MD [Primary Care Provider] - Forms: ED Department Discharge Additional Instructions: The following information is given to patients seen in the emergency department who are being discharged to home. This information is to outline your options for follow-up care. We provide all patients seen in our emergency department with a follow-up referral. The need for follow-up, as well as the timing and circumstances, are variable d epending upon the specifics of your emergency department visit. If you don't have a primary care physician on staff, we will provide you with a referral. We always advise you to contact your personal physician following an emergency department visit to inform them of the circumstance of the visit and for follow-up with them and/or the need for any referrals to a consulting specialist. The emergency department will also refer you to a specialist when appropriate. This referral assures that you have the opportunity for follow-up care with a specialist. All of these measure are taken in an effort to provide you with optimal care, which includes your follow-up. Under all circumstances we always encourage you to contact your private physician who remains a resource for coordinating your care. When calling for follow-up care, please make the office aware that this follow-up is from your recent emergency room visit. If for any reason you are refused follow-up, please contact the [facility] Emergency Department at and asked to speak to the emergency department charge nurse. [facility] [address] [place] [id number] [address] Thank you for choosing the [facility] emergency department in [place] for your medical needs today. It was a pleasure caring for you. Today you were seen in the emergency department for COVID 1. You were evaluated today on an emergent basis. You need to try to take small frequent sips of fluids, soups, Gatorade etc... to prevent dehydration. Your labs and CT scan that were done this morning show no acute or concerning findings. Vitals are within normal limits. 2. You can alternate Tylenol and ibuprofen as needed for pain and fever management. 3. We encourage you to follow up with your primary care provider and/or recommended specialist in the next few days for re-evaluation and further care/management. 4. If your symptoms should worsen, new symptoms develop or any of the signs and symptoms we discussed should arise please return to the emergency room or call 911 (if needed). Sepsis Event Note (ED) - Focused Exam Vital Signs: Vital Signs Temp Pulse Resp BP Pulse Ox 02/17/21 16:43 100.5 F 115 H 18 127/67 94 L - My Orders Last 24 Hours: My Active Orders 02/17/21 16:51 Communication Order [RC] STAT - Assessment/Plan Last 24 Hours: My Active Orders 02/17/21 16:51 Communication Order [RC] STAT
[2021-02-17] MEDS ORDERED: Acetaminophen 500 MG Tab PO ONE (17:11)
[2021-02-17] MEDS ORDERED: Ondansetron 4 MG Tab.DIS PO ONE (17:12)
[2021-02-17 18:13] VITALS: BP 118/69; PULSE 104
== END 2021-02-17 18:13 | disposition home or self-care (01) ==
LOC: MW.ED 16:31
DX: U07.1 COVID-19 (principal); I10 Essential (primary) hypertension
CPT/HCPCS: 99283; A9270

== ENCOUNTER 2021-02-17 23:31 | Observation (INO) | payer OTHER ==
[2021-02-18] MEDS ORDERED: LORazepam 1 MG Tab PO ONE (00:01)
[2021-02-18] MEDS ORDERED: diphenhydrAMINE 50 MG/ML SDV IVPUSH ONE (00:59)
[2021-02-18] MEDS ORDERED: Dextrose 5%-Lactated Ringers 1,000 ML IV SCH (01:00)
--- NOTE | 2021-02-18 02:07 | PCM.EKG ---
#1 Interpretation EKG Date: 02/17/21 Time: 23:37 Rhythm: NSR Rate (Beats/Min): 138 [place]: Normal P-Wave: Present QRS: Normal ST-T: Normal QT: Normal Comparison: No Change (11/28/17) EKG Interpretation Comments: Sinus Rhythm
[2021-02-18 03:12] LABS: BLOOD UREA NITROGEN,BUN 10 mg/dL (7.0-18.0); CARBON DIOXIDE,CO2 25.4 mmol/L (21.0-32.0); CHLORIDE,CL 101 mmol/L (98-107); GLUCOSE RANDOM 191 mg/dL (74-106); POTASSIUM,K 3.6 mmol/L (3.5-5.1); SODIUM,NA 137 mmol/L (136-148)
--- NOTE | 2021-02-18 05:05 | EDM.PDOC ---
ED HPI GENERAL MEDICAL PROBLEM - General Chief Complaint: Cardiovascular Problem Stated Complaint: EMS Time Seen by Provider: 02/18/21 00:01 - History of Present Illness INITIAL COMMENTS - FREE TEXT/NARRATIVE: CHIEF COMPLAINT(S): Palpitations HISTORY OF PRESENT ILLNESS: This is a 25-year-old man with a past medical history of anxiety and recent diagnosis of COVID-19 with multiple emergency department visits for intractable vomiting who comes to the emergency department with a chief complaint of palpitations. The patient states that he had been doing fine from his vomiting today however this evening at around 10:30 PM he took Zofran and approximately 15 L he was feeling dizzy he could not walk and felt his heart racing. He denies any chest pain, shortness of breath, abdominal pain. He states that he has not had any vomiting since then. He denies any diarrhea, melanotic hematochezia, hematemesis or bilious emesis. He denies any other symptoms. REVIEW OF SYSTEMS: Constitutional: Positive for dizziness. Denies fever, chills. Eyes: Denies eye pain Ears, Nose, Mouth, & Throat: Denies earache Cardiovascular: Positive for palpitations denies chest pain Respiratory: Denies shortness of breath Gastrointestinal: Denies Nausea, vomiting, diarrhea, hematochezia. Genitourinary: Denies hematuria Skin:Denies a rash MSK: Denies joint pain Neurological: Denies blurred vision Psychiatric: Denies depression PAST MEDICAL HISTORY: As per history of present illness and as reviewed below otherwise noncontributory. SURGICAL HISTORY: As per history of present illness and as reviewed below otherwise noncontributory. SOCIAL HISTORY: As per history of present illness and as reviewed below otherwise noncontributory. FAMILY HISTORY: As per history of present illness and as reviewed below otherwise noncontributory. EXAMINATION OF ORGAN SYSTEMS/BODY AREAS: Constitutional: Blood pressure is 119/59, heart rate 140, respiratory rate 18 with an oxygen saturation of 93% on room air. Temperature 37.1 General: Young man who appears to be mildly anxious otherwise in no acute distress Psychiatric: Anxious appearing but cooperative Eyes: No scleral icterus or conjunctival erythema ENMT: Moist mucous membranes. No pharyngeal erythema Cardiovascular: Regular, rate, and rhythm. No gallops, murmurs, or rubs. Bilateral upper extremity pulses symmetric and intact. No peripheral edema. No JVD. Respiratory: Lungs clear to auscultation bilaterally. No wheezes, rales, or rhonchi. Gastrointestinal: Soft, non-tender, non-distended. Normoactive bowel sounds Genitourinary: No suprapubic tenderness Musculoskeletal: Normal range of motion. Skin: No lesions or abrasions. Neurological: Alert, GCS 15 MEDICAL DECISION MAKING AND COURSE IN THE ED WITH INTERPRETATION/REVIEW OF DIAGNOSTIC STUDIES: This is a 25-year-old man and with a past medical history of anxiety and recent diagnosis of COVID-19 with multiple emergency department visits for intractable vomiting who comes to the emergency department with dizziness and acute episode of palpitations who is tachycardic. At this time cardiac monitoring did reveal sinus tachycardia and pulse oximetry with good waveform was 93 to 94% on room air. We did obtain a screening EKG which was unremarkable and revealed sinus tachycardia. At this time given the patient's vomiting prior to today we will provide the patient 1 L of D5 LR and given his history of anxiety we will provide the patient with 1 mg of p.o. Ativan. Will obtain labs including CBC, BMP, troponin, TSH. The patient has already received a CT angiogram by myself within the last 24 hours which was found to be negative. Patient appears nontoxic I do not believe any further work-up is indicated. DDx: Panic attack, dehydration, arrhythmia, hyperthyroidism Laboratory: CBC reveals no acute abnormality other than leukopenia which is decreased from prior at 3.46. BMP is unremarkable. Calcium is 7.9. Troponin is negative. TSH is 2.02. On reevaluation despite patient sitting comfortably in the stretcher the patient's heart rate continued to be in the range of 120s to 130s. At this time given multiple evaluations and CT angiogram it is uncertain as to what is causing the patient's tachycardia. However given that he has visited the emergency department multiple times I did discuss observation admission for the patient. He was amenable to this plan. I contacted Dr. Lees who accepted the patient for observation admission. DISPOSITION: Patient was admitted for observation in stable condition CONDITION: Fair PROCEDURES: Cardiac monitoring interpretation, pulse oximetry interpretation FINAL IMPRESSION(S)/DIAGNOSES: 1. Acute tachycardia Lino Kramer M.D. - Related Data Allergies Allergy/AdvReac Type Severity Reaction Status Date / Time No Known Allergies Allergy Verified 02/17/21 23:50 Home Meds: Home Meds ALPRAZolam [Xanax XR] 1 mg PO DAILY PRN 06/14/17 [History] Desvenlafaxine Succinate [Pristiq ER] 100 mg PO DAILY 06/14/17 [History] Fluticasone/Vilanterol [Breo Ellipta 100-25 MCG Inhalation Kit] 1 puff INH DAILY 06/14/17 [History] Ondansetron [Zofran ODT] 4 mg PO Q6H PRN #8 tab.dis 02/16/21 [Rx] Promethazine HCl [Promethegan] 25 mg RC Q6HR #8 supp.rect 02/17/21 [Rx] lisinopriL [Lisinopril] 20 mg PO DAILY 02/17/21 [History] Past Medical History - Past Health History Medical/Surgical History: Denies Medical/Surgical History HEENT History: Reports: Impaired Vision Cardiovascular History: Reports: Hypertension Respiratory History: Reports: Asthma Gastrointestinal History: Reports: None Genitourinary History: Reports: None Musculoskeletal History: Reports: None Neurological History: Reports: None Psychiatric History: Reports: Anxiety, Depression Endocrine/Metabolic History: Reports: None Hematologic History: Reports: None Immunologic History: Reports: None Oncologic (Cancer) History: Reports: None Dermatologic History: Reports: None - Infectious Disease History Infectious Disease History: Reports: None - Past Surgical History GI Surgical History: Reports: None Male Surgical History: Reports: None Social & Family History - Family History Family Medical History: No Pertinent Family History - Tobacco Use Tobacco Use Status *Q: Never Tobacco User - Caffeine Use Caffeine Use: Reports: Coffee, Soda - Recreational Drug Use Recreational Drug Use: No ED ROS GENERAL - Review of Systems Review Of Systems: See Below ED EXAM, GENERAL - Physical Exam Exam: See Below Course - Vital Signs Last Recorded V/S: Last Vital Signs Temp 37.1 C 02/17/21 23:51 Pulse 130 H 02/18/21 04:16 Resp 18 02/17/21 23:51 BP 119/59 L 02/18/21 04:16 Pulse Ox 94 L 02/18/21 04:16 - Orders/Labs/Meds Orders: Active Orders 24 hr Category Date Time Status Admission Status [Patient Status] [ADT] Stat ADT 02/18/21 04:18 Active Dextrose 5%-Lactated Ringers 1,000 ml Med 02/18/21 01:00 Active IV ASDIRECTED Medication Orders Dextrose/Lactated Ringer's (Dextrose 5%-Lactated Ringers) 1,000 mls @ 999 mls/hr IV ASDIRECTED GLENYS Last Admin: 02/18/21 02:11 Dose: 999 mls/hr Documented by: KAN Labs: Laboratory Tests 02/18/21 02/18/21 Range/Units 02:20 02:20 WBC 3.46 L (4.0-11.0) K/uL RBC 4.64 (4.50-5.90) M/uL Hgb 13.2 (13.0-17.0) g/dL Hct 39.6 (38.0-50.0) % MCV 85.3 (80.0-98.0) fL MCH 28.4 (27.0-32.0) pg MCHC 33.3 (31.0-37.0) g/dL RDW Std Deviation 39.7 (28.0-62.0) fl RDW Coeff of Alfredito 13 (11.0-15.0) % Plt Count 155 (150-400) K/uL MPV 10.10 (7.40-12.00) fL Neut % (Auto) 78.0 (48.0-80.0) % Lymph % (Auto) 15.6 L (16.0-40.0) % Johnston % (Auto) 6.1 (0.0-15.0) % Eos % (Auto) 0.0 (0.0-7.0) % Baso % (Auto) 0.3 (0.0-1.5) % Neut # (Auto) 2.7 (1.4-5.7) K/uL Lymph # (Auto) 0.5 L (0.6-2.4) K/uL Johnston # (Auto) 0.2 (0.0-0.8) K/uL Eos # (Auto) 0.0 (0.0-0.7) K/uL Baso # (Auto) 0.0 (0.0-0.1) K/uL Sodium 137 (136-148) mmol/L Potassium 3.6 (3.5-5.1) mmol/L Chloride 101 (98-107) mmol/L Carbon Dioxide 25.4 (21.0-32.0) mmol/L BUN 10 (7.0-18.0) mg/dL Creatinine 1.3 (0.8-1.3) mg/dL Est Cr Clr Drug Dosing 96.46 mL/min Estimated GFR (MDRD) > 60.0 ml/min Glucose 191 H (74-106) mg/dL Calcium 7.9 L (8.5-10.1) mg/dL Troponin I < 0.050 (0.000-0.056) ng/mL TSH, Ultra Sensitive 2.02 (0.36-3.74) uIU/mL Meds: Medications Generic Name Dose Route Start Last Admin Trade Name Freq PRN Reason Stop Dose Admin Dextrose/Lactated Ringer's 1,000 mls @ 999 mls/hr 02/18/21 01:00 02/18/21 02:11 Dextrose 5%-Lactated Ringers IV 999 mls/hr ASDIRECTED GLENYS Administration Discontinued Medications Generic Name Dose Route Start Last Admin Trade Name Freq PRN Reason Stop Dose Admin Diphenhydramine HCl 50 mg 02/18/21 00:59 02/18/21 02:11 Diphenhydramine 50 Mg/Ml Sdv IVPUSH 02/18/21 01:00 50 mg ONETIME ONE Administration Lorazepam 1 mg 02/18/21 00:01 02/18/21 00:21 Lorazepam 1 Mg Tab PO 02/18/21 00:02 1 mg ONETIME ONE Administration Departure - Departure Time of Disposition: 04:18 Disposition: Refer to Observation Condition: Fair Clinical Impression: Tachycardia - Discharge Information *PRESCRIPTION DRUG MONITORING PROGRAM REVIEWED*: No *COPY OF PRESCRIPTION DRUG MONITORING REPORT IN PATIENT JENNIFER: No Sepsis Event Note (ED) - Focused Exam Vital Signs: Vital Signs Temp Pulse Resp BP Pulse Ox 02/18/21 04:16 130 H 119/59 L 94 L 02/18/21 03:33 121 H 119/99 H 94 L 02/17/21 23:51 37.1 C 140 H 18 119/59 L 93 L - My Orders Last 24 Hours: My Active Orders 02/18/21 01:00 Dextrose 5%-Lactated Ringers 1,000 ml IV ASDIRECTED 02/18/21 04:18 Admission Status [Patient Status] [ADT] Stat - Assessment/Plan Last 24 Hours: My Active Orders 02/18/21 01:00 Dextrose 5%-Lactated Ringers 1,000 ml IV ASDIRECTED 02/18/21 04:18 Admission Status [Patient Status] [ADT] Stat
[2021-02-18] MEDS ORDERED: Sodium Chloride 0.9% 10 ML Syringe FLUSH PRN (06:33)
[2021-02-18] MEDS ORDERED: Sodium Chloride 0.9% 2.5 ML Syringe FLUSH PRN (06:33)
--- NOTE | 2021-02-18 09:14 | CR ---
Indication: Cough Comparison: Single view chest November 28, 2017 Technique: Single AP view chest Findings: There is hyperinflation and central bronchial thickening. There is suggestion of minimal basilar airspace opacity. The cardiomediastinal silhouette is within normal limits. The bony thorax is grossly intact. Impression: Hyperinflation and mild central bronchial thickening with questionable developing airspace opacities within the lung bases. Dictated by Terry Lopez MD @ 02/18/2021 9:14:14 AM (Electronically Signed)
[2021-02-18] MEDS: Levofloxacin/Dextrose 5%-Water 750 MG in Premix Bag 1 BAG IV SCH (11:07)
--- NOTE | 2021-02-18 11:27 | PCM.HP.2 ---
H&P History of Present Illness - General Date of Service: 02/18/21 Admit Problem/Dx: Admission Diagnosis/Problem Admission Diagnosis/Problem Tachycardia - History of Present Illness Initial Comments - Free Text/Narative: The patient is a 25-year-old male, on day 1 of service, with a significant past medical history of anxiety with depression, recent COVID-19 infection diagnosis, and multiple visits to the emergency department for intractable vomiting, and asthma, who was admitted to the medical floor due to sinus tachycardia and fever secondary to pneumonia. The patient explains for the past 48 hours he has had a temperature ranging from 101-102, and an overall feeling of not being well, heart racing, dizziness, and feeling flushed. The patient has been taking Zofran for the past week due to episodes of vomiting which are nonbilious and nonbloody, but he felt he had a reaction to a dosing l ast night around 10 PM which precipitated his symptoms. On further interview, he denies chest pain, shortness of breath, abdominal pain, loss of consciousness or fever, or any issues with urination and/or defecation. He has no known drug allergies. His social history is negative for cigarette smoking, alcohol consumption, or recreational drug use, his family history is noncontributory. On CBC, his white blood cell count is 3.46, hemoglobin is 13.2, hematocrit is 39.6, and platelet count is 155. On CMP, his sodium is 137, potassium is 3.6, chloride is 101, carbon dioxide 25.4, BUN is 10, and creatinine is 1.3. His troponins were negative at less than 0.050, his TSH was in the normal range of 2.02. His chest x-ray revealed hyperinflation with mild bronchial thickening with questionable developing airspace opacities within the lung bases In the emergency department, the patient was given lactated Ringer's with dextrose 1000 mL bolus over 1 hour, was given diphenhydramine 50 mg once, and given Ativan 1 mg once. He also had all the tests and imaging modalities listed above done in the ED. - Related Data Allergies/Adverse Reactions: Allergies Allergy/AdvReac Type Severity Reaction Status Date / Time No Known Allergies Allergy Verified 02/17/21 23:50 Home Medications: Home Meds Desvenlafaxine Succinate [Pristiq ER] 150 mg PO DAILY 06/14/17 [History] Fluticasone/Vilanterol [Breo Ellipta 100-25 MCG Inhalation Kit] 1 puff INH DAILY 06/14/17 [History] Ondansetron [Zofran ODT] 4 mg PO Q6H PRN #8 tab.dis 02/16/21 [Rx] Promethazine HCl [Promethegan] 25 mg RC Q6HR #8 supp.rect 02/17/21 [Rx] lisinopriL [Lisinopril] 20 mg PO DAILY 02/17/21 [History] Past Medical History - Past Health History Medical/Surgical History: Denies Medical/Surgical History HEENT History: Reports: Impaired Vision Cardiovascular History: Reports: Hypertension Respiratory History: Reports: Asthma Gastrointestinal History: Reports: None Genitourinary History: Reports: None Musculoskeletal History: Reports: None Neurological History: Reports: None Psychiatric History: Reports: Anxiety, Depression Endocrine/Metabolic History: Reports: None Hematologic History: Reports: None Immunologic History: Reports: None Oncologic (Cancer) History: Reports: None Dermatologic History: Reports: None - Infectious Disease History Infectious Disease History: Reports: Shingles - Past Surgical History GI Surgical History: Reports: None Male Surgical History: Reports: None Social & Family History - Family History Family Medical History: No Pertinent Family History - Tobacco Use Tobacco Use Status *Q: Never Tobacco User Second Hand Smoke Exposure: No - Caffeine Use Caffeine Use: Reports: Soda Other Caffeine Use: Two per week - Recreational Drug Use Recreational Drug Use: No H&P Review of Systems - Review of Systems: Review Of Systems: See Below General: Reports: Fever, Weakness, Fatigue. Denies: Night Sweats, Diaphoresis HEENT: Denies: Headaches, Sinus Congestion Pulmonary: Reports: Cough. Denies: Shortness of Breath Cardiovascular: Reports: Palpitations. Denies: Chest Pain Gastrointestinal: Reports: Nausea, Vomiting. Denies: Abdominal Pain, Constipation, Diarrhea Genitourinary: Denies: Dysuria Neurological: Reports: Dizziness. Denies: Numbness, Paresthesia, Trouble Speaking, Difficulty Walking Exam - Exam Exam: See Below - Vital Signs Vital Signs: Last Vital Signs Temp 101.3 F H 02/18/21 07:37 Pulse 124 H 02/18/21 07:37 Resp 18 02/18/21 07:37 BP 108/52 L 02/18/21 07:37 Pulse Ox 92 L 02/18/21 07:37 Weight: 233 lb 12.8 oz - Exam General: Alert, Oriented, Cooperative HEENT: EOMI, Other (Dry mucous membranes) Neck: Trachea Midline. No: Lymphadenopathy Lungs: Clear to Auscultation, Normal Respiratory Effort Cardiovascular: Tachycardia GI/Abdominal Exam: Normal Bowel Sounds, Soft, Non-Tender, No Organomegaly Extremities: No Pedal Edema - Patient Data Lab Results Last 24 hrs: Laboratory Results - last 24 hr 02/18/21 02/18/21 02/18/21 Range/Units 02:20 02:20 07:28 WBC 3.46 L (4.0-11.0) K/uL RBC 4.64 (4.50-5.90) M/uL Hgb 13.2 (13.0-17.0) g/dL Hct 39.6 (38.0-50.0) % MCV 85.3 (80.0-98.0) fL MCH 28.4 (27.0-32.0) pg MCHC 33.3 (31.0-37.0) g/dL RDW Std Deviation 39.7 (28.0-62.0) fl RDW Coeff of Alfredito 13 (11.0-15.0) % Plt Count 155 (150-400) K/uL MPV 10.10 (7.40-12.00) fL Neut % (Auto) 78.0 (48.0-80.0) % Lymph % (Auto) 15.6 L (16.0-40.0) % [place] % (Auto) 6.1 (0.0-15.0) % Eos % (Auto) 0.0 (0.0-7.0) % Baso % (Auto) 0.3 (0.0-1.5) % Neut # (Auto) 2.7 (1.4-5.7) K/uL Lymph # (Auto) 0.5 L (0.6-2.4) K/uL [place] # (Auto) 0.2 (0.0-0.8) K/uL Eos # (Auto) 0.0 (0.0-0.7) K/uL Baso # (Auto) 0.0 (0.0-0.1) K/uL Sodium 137 (136-148) mmol/L Potassium 3.6 (3.5-5.1) mmol/L Chloride 101 (98-107) mmol/L Carbon Dioxide 25.4 (21.0-32.0) mmol/L BUN 10 (7.0-18.0) mg/dL Creatinine 1.3 (0.8-1.3) mg/dL Est Cr Clr Drug Dosing 96.46 mL/min Estimated GFR (MDRD) > 60.0 ml/min Glucose 191 H (74-106) mg/dL Lactic Acid 0.9 (0.4-2.0) mmol/L Calcium 7.9 L (8.5-10.1) mg/dL Troponin I < 0.050 (0.000-0.056) ng/mL TSH, Ultra Sensitive 2.02 (0.36-3.74) uIU/mL Urine Color Urine Appearance Urine pH (5.0-8.0) Ur Specific [place] (1.001-1.035) Urine Protein (NEGATIVE) mg/dL Urine Glucose (UA) (NEGATIVE) mg/dL Urine Ketones (NEGATIVE) mg/dL Urine Occult Blood (NEGATIVE) Urine Nitrite (NEGATIVE) Urine Bilirubin (NEGATIVE) Urine Urobilinogen (<2.0) EU/dL Ur Leukocyte Esterase (NEGATIVE) Urine RBC (0-2/HPF) Urine WBC (0-5/HPF) Ur Epithelial Cells (NONE-FEW) Urine Bacteria (NEGATIVE) Urine Mucus (NONE-MOD) 02/18/21 Range/Units 10:20 WBC (4.0-11.0) K/uL RBC (4.50-5.90) M/uL Hgb (13.0-17.0) g/dL Hct (38.0-50.0) % MCV (80.0-98.0) fL MCH (27.0-32.0) pg MCHC (31.0-37.0) g/dL RDW Std Deviation (28.0-62.0) fl RDW Coeff of Alfredito (11.0-15.0) % Plt Count (150-400) K/uL MPV (7.40-12.00) fL Neut % (Auto) (48.0-80.0) % Lymph % (Auto) (16.0-40.0) % [place] % (Auto) (0.0-15.0) % Eos % (Auto) (0.0-7.0) % Baso % (Auto) (0.0-1.5) % Neut # (Auto) (1.4-5.7) K/uL Lymph # (Auto) (0.6-2.4) K/uL [place] # (Auto) (0.0-0.8) K/uL Eos # (Auto) (0.0-0.7) K/uL Baso # (Auto) (0.0-0.1) K/uL Sodium (136-148) mmol/L Potassium (3.5-5.1) mmol/L Chloride (98-107) mmol/L Carbon Dioxide (21.0-32.0) mmol/L BUN (7.0-18.0) mg/dL Creatinine (0.8-1.3) mg/dL Est Cr Clr Drug Dosing mL/min Estimated GFR (MDRD) ml/min Glucose (74-106) mg/dL Lactic Acid (0.4-2.0) mmol/L Calcium (8.5-10.1) mg/dL Troponin I (0.000-0.056) ng/mL TSH, Ultra Sensitive (0.36-3.74) uIU/mL Urine Color YELLOW Urine Appearance CLEAR Urine pH 7.0 (5.0-8.0) Ur Specific [place] 1.015 (1.001-1.035) Urine Protein TRACE H (NEGATIVE) mg/dL Urine Glucose (UA) NEGATIVE (NEGATIVE) mg/dL Urine Ketones TRACE H (NEGATIVE) mg/dL Urine Occult Blood NEGATIVE (NEGATIVE) Urine Nitrite NEGATIVE (NEGATIVE) Urine Bilirubin NEGATIVE (NEGATIVE) Urine Urobilinogen 0.2 (<2.0) EU/dL Ur Leukocyte Esterase NEGATIVE (NEGATIVE) Urine RBC 0-2 (0-2/HPF) Urine WBC 1-3 (0-5/HPF) Ur Epithelial Cells FEW (NONE-FEW) Urine Bacteria FEW (NEGATIVE) Urine Mucus LIGHT (NONE-MOD) Result Diagrams: 02/18/21 02:20 02/18/21 02:20 Sepsis Event Note - Evaluation Sepsis Screening Result: Sepsis Risk - Focused Exam Vital Signs: Vital Signs Temp Temp Pulse Resp BP Pulse Ox 02/18/21 07:37 101.3 F H 124 H 18 108/52 L 92 L 02/18/21 05:58 102.1 F H 116 H 20 110/52 L 94 L 02/18/21 04:16 130 H 119/59 L 94 L 02/18/21 03:33 121 H 119/99 H 94 L 02/17/21 23:51 98.8 F 140 H 18 119/59 L 93 L - Problem List (1) Depression SNOMED Code(s): 71546449 ICD Code: F32.A - DEPRESSION, UNSPECIFIED Status: Acute Current Visit: Yes (2) Pneumonia SNOMED Code(s): 680726484 ICD Code: J18.9 - PNEUMONIA, UNSPECIFIED ORGANISM Status: Acute Current Visit: Yes (3) Tachycardia SNOMED Code(s): 2949653 ICD Code: R00.0 - TACHYCARDIA, UNSPECIFIED Status: Acute Current Visit: Yes (4) Asthma SNOMED Code(s): 757840983 ICD Code: J45.909 - UNSPECIFIED ASTHMA, UNCOMPLICATED Status: Acute Current Visit: No (5) COVID-19 SNOMED Code(s): 591361591 ICD Code: U07.1 - COVID-19 Status: Acute Current Visit: No (6) Palpitations SNOMED Code(s): 37360076 ICD Code: R00.2 - PALPITATIONS Status: Acute Current Visit: No (7) Anxiety SNOMED Code(s): 53931942 ICD Code: F41.9 - ANXIETY DISORDER, UNSPECIFIED Status: Acute Current Visit: No Problem List Initiated/Reviewed/Updated: Yes Orders Last 24hrs: Active Orders 24 hr Category Date Time Status Admission Status [Patient Status] [ADT] Stat ADT 02/18/21 04:18 Active Telemetry Monitoring [Cardiac Monitoring] [RC] . Care 02/18/21 05:19 Active DIRECTED Regular Diet [DIET] Diet 02/18/21 Lunch Active CBC WITH AUTO DIFF [HEME] AM Lab 02/19/21 05:11 Ordered CBC WITH AUTO DIFF [HEME] AM Lab 02/20/21 05:11 Ordered CBC WITH AUTO DIFF [HEME] AM Lab 02/21/21 05:11 Ordered CMP [COMPREHENSIVE METABOLIC PN,CMP] [CHEM] AM Lab 02/19/21 05:11 Ordered CMP [COMPREHENSIVE METABOLIC PN,CMP] [CHEM] AM Lab 02/20/21 05:11 Ordered CMP [COMPREHENSIVE METABOLIC PN,CMP] [CHEM] AM Lab 02/21/21 05:11 Ordered CULTURE BLOOD [BC] Stat Lab 02/18/21 07:07 Received CULTURE BLOOD [BC] Stat Lab 02/18/21 07:28 Received Dextrose 5%-Lactated Ringers 1,000 ml Med 02/18/21 01:00 Active IV ASDIRECTED Enoxaparin [Lovenox] Med 02/18/21 11:15 Ordered 40 mg SUBCUT Q24H Levofloxacin/Dextrose 5%-Water [Levaquin in D5W 750 MG/ Med 02/18/21 11:15 A ctive 150 ML] 750 mg Premix Bag 1 bag IV Q24H Pantoprazole [ProTONIX] Med 02/18/21 11:15 Ordered 40 mg PO DAILY Sodium Chloride 0.9% [Saline Flush] Med 02/18/21 06:33 Active 10 ml FLUSH ASDIRECTED PRN Sodium Chloride 0.9% [Saline Flush] Med 02/18/21 06:33 Active 2.5 ml FLUSH ASDIRECTED PRN Blood Culture x2 Reflex Set [OM.PC] Stat Oth 02/18/21 06:30 Ordered Convert IV to Saline Lock [OM.PC] Routine Oth 02/18/21 06:33 Ordered Code Status [Resuscitation Status] Routine Resus Stat 02/18/21 11:13 Ordered Medication Orders Enoxaparin Sodium (Enoxaparin 40 Mg/0.4 Ml Syringe) 40 mg SUBCUT Q24H [facility] Dextrose/Lactated Ringer's (Dextrose 5%-Lactated Ringers) 1,000 mls @ 999 mls/hr IV ASDIRECTED [facility] Last Admin: 02/18/21 02:11 Dose: 999 mls/hr Documented by: KAN Levofloxacin/Dextrose 750 mg/ (Premix) 150 mls @ 100 mls/hr IV Q24H [facility] Last Admin: 02/18/21 11:07 Dose: 100 mls/hr Documented by: STEWMICST Cosigned by: KIKA Pantoprazole Sodium (Pantoprazole 40 Mg Tab.Cr) 40 mg PO DAILY [facility] Sodium Chloride (Sodium Chloride 0.9% 10 Ml Syringe) 10 ml FLUSH ASDIRECTED PRN PRN Reason: Keep Vein Open Sodium Chloride (Sodium Chloride 0.9% 2.5 Ml Syringe) 2.5 ml FLUSH ASDIRECTED PRN PRN Reason: Keep Vein Open Assessment/Plan Comment:: Admit the patient to the medical floor, vitals per unit routine, activity up ad deysi., regular diet, DVT prophylaxis with Lovenox 40 mg subcutaneously once a d ay, GI prophylaxis with pantoprazole 40 mg per oral route once a day, the patient is full code. 1. Pneumonia and history of asthma -We have started the patient on Levaquin 750 mg per IV route every 24 hours -We have also started the patient on duo nebulizer treatment as needed for shortness of breath -We will continue to monitor patient's lab values through daily CBC/CMP 2. 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 History of anxiety and depression -We will continue the patient is desvenlafaxine home dosage
[2021-02-18] MEDS ORDERED: Albuterol/Ipratropium 3.0-0.5 MG/3 ML Neb Soln NEB PRN (11:35)
[2021-02-18] MEDS: Pantoprazole 40 MG Tab.CR PO SCH (11:58)
[2021-02-18] MEDS: Enoxaparin 40 MG/0.4 ML Syringe SUBCUT SCH (11:58)
[2021-02-18] MEDS ORDERED: DESVENLAFAXINE 100 MG PO SCH (22:45)
[2021-02-18] MEDS: DESVENLAFAXINE 100 MG PO SCH (23:03)
[2021-02-18] MEDS: DESVENLAFAXINE ER 50 MG TAB PO SCH (23:03)
[2021-02-19 08:13] LABS: BLOOD UREA NITROGEN,BUN 11 mg/dL (7.0-18.0); CHLORIDE,CL 105 mmol/L (98-107); GLUCOSE RANDOM 99 mg/dL (74-106); POTASSIUM,K 4.2 mmol/L (3.5-5.1); SODIUM,NA 141 mmol/L (136-148)
[2021-02-19 08:25] LABS: CARBON DIOXIDE,CO2 27.3 mmol/L (21.0-32.0)
[2021-02-19] MEDS: Pantoprazole 40 MG Tab.CR PO SCH (08:54)
[2021-02-19] MEDS ORDERED: DESVENLAFAXINE 100 MG PO SCH ×2 (09:00→21:00)
[2021-02-19] MEDS ORDERED: DESVENLAFAXINE ER 50 MG TAB PO SCH (09:00)
[2021-02-19] MEDS: Levofloxacin/Dextrose 5%-Water 750 MG in Premix Bag 1 BAG IV SCH (10:36)
[2021-02-19] MEDS: Enoxaparin 40 MG/0.4 ML Syringe SUBCUT SCH (10:40)
--- NOTE | 2021-02-19 13:50 | PCM.PN ---
- General Info Date of Service: 02/19/21 Subjective Update: The patient is a 25-year-old male, on day 2 of service, with a significant past medical history of anxiety with depression, recent COVID-19 infection diagnosis, and multiple visits to the emergency department for intractable vomiting, and asthma, who was admitted to the medical floor due to sinus tachycardia and fever secondary to pneumonia. Upon interview with the patient today he admits that his heart racing due to anxiety has significantly decreased since taking his desvenlafaxine medication last night. Current heart rate is 97. He does admit that he has had coughing spells productive of brown sputum overnight which has him concerned. He was reassured that he is on an antibiotic called Levaquin which is used to tackle his infection. He is eating and drinking without any issues, and denies chest pain, palpitations, loss of taste or smell, or any issues with urination and/or defecation. He has no other health concerns at this time. - Review of Systems General: Denies: Fever, Weakness, Fatigue HEENT: Denies: Headaches, Sore Throat Pulmonary: Reports: Shortness of Breath, Cough, Sputum Cardiovascular: Denies: Chest Pain, Palpitations Gastrointestinal: Denies: Abdominal Pain Genitourinary: Denies: Dysuria Psychiatric: Denies: Anxiety - Patient Data Vitals - Most Recent: Last Vital Signs Temp 98.7 F 02/19/21 11:00 Pulse 84 02/19/21 11:00 Resp 14 02/19/21 11:00 BP 114/75 02/19/21 11:00 Pulse Ox 96 02/19/21 11:00 Weight - Most Recent: 233 lb 12.8 oz I&O - Last 24 Hours: Intake & Output 02/18/21 02/19/21 02/19/21 22:59 06:59 14:59 Intake Total 880 Balance 880 Lab Results Last 24 Hours: Laboratory Results - last 24 hr 02/19/21 02/19/21 Range/Units 07:34 07:34 WBC 3.85 L (4.0-11.0) K/uL RBC 4.76 (4.50-5.90) M/uL Hgb 13.6 (13.0-17.0) g/dL Hct 40.8 (38.0-50.0) % MCV 85.7 (80.0-98.0) fL MCH 28.6 (27.0-32.0) pg MCHC 33.3 (31.0-37.0) g/dL RDW Std Deviation 41.7 (28.0-62.0) fl RDW Coeff of Alfred[place] 13 (11.0-15.0) % Plt Count 162 (150-400) K/uL MPV 9.60 (7.40-12.00) fL Neut % (Auto) 60.7 (48.0-80.0) % Lymph % (Auto) 29.4 (16.0-40.0) % [place] % (Auto) 9.6 (0.0-15.0) % Eos % (Auto) 0.0 (0.0-7.0) % Baso % (Auto) 0.3 (0.0-1.5) % Neut # (Auto) 2.3 (1.4-5.7) K/uL Lymph # (Auto) 1.1 (0.6-2.4) K/uL [place] # (Auto) 0.4 (0.0-0.8) K/uL Eos # (Auto) 0.0 (0.0-0.7) K/uL Baso # (Auto) 0.0 (0.0-0.1) K/uL Nucleated RBC % 0.0 /100WBC Nucleated RBCs # 0 K/uL Sodium 141 (136-148) mmol/L Potassium 4.2 (3.5-5.1) mmol/L Chloride 105 (98-107) mmol/L Carbon Dioxide 27.3 (21.0-32.0) mmol/L BUN 11 (7.0-18.0) mg/dL Creatinine 1.2 (0.8-1.3) mg/dL Est Cr Clr Drug Dosing 104.50 mL/min Estimated GFR (MDRD) > 60.0 ml/min Glucose 99 (74-106) mg/dL Calcium 8.3 L (8.5-10.1) mg/dL Total Bilirubin 0.5 (0.2-1.0) mg/dL AST 30 (15-37) IU/L ALT 55 (14-63) IU/L Alkaline Phosphatase 45 L (46-116) U/L Total Protein 7.5 (6.4-8.2) g/dL Albumin 3.0 L (3.4-5.0) g/dL Globulin 4.5 H (2.6-4.0) g/dL Albumin/Globulin Ratio 0.7 L (0.9-1.6) Jimi Results Last 24 Hours: Microbiology 02/18/21 07:28 Aerobic Blood Culture - Preliminary Blood - Venous - Lab Draw NO GROWTH AFTER 1 DAY Anaerobic Blood Culture - Preliminary NO GROWTH AFTER 1 DAY 02/18/21 07:07 Aerobic Blood Culture - Preliminary Blood - Venous NO GROWTH AFTER 1 DAY Anaerobic Blood Culture - Preliminary NO GROWTH AFTER 1 DAY Med Orders - Current: Current Medications Albuterol/Ipratropium (Albuterol/Ipratropium 3.0-0.5 Mg/3 Ml Neb Soln) 3 ml NEB Q4HRRT PRN PRN Reason: Shortness of Breath Last Admin: 02/18/21 19:58 Dose: 3 ml Documented by: Enoxaparin Sodium (Enoxaparin 40 Mg/0.4 Ml Syringe) 40 mg SUBCUT Q24H [facility] Last Admin: 02/19/21 10:40 Dose: 40 mg Documented by: Dextrose/Lactated Ringer's (Dextrose 5%-Lactated Ringers) 1,000 mls @ 999 mls/hr IV ASDIRECTED [facility] Last Admin: 02/18/21 02:11 Dose: 999 mls/hr Documented by: Levofloxacin/Dextrose 750 mg/ (Premix) 150 mls @ 100 mls/hr IV Q24H [facility] Last Admin: 02/19/21 10:36 Dose: 100 mls/hr Documented by: Pantoprazole Sodium (Pantoprazole 40 Mg Tab.Cr) 40 mg PO DAILY [facility] Last Admin: 02/19/21 08:54 Dose: 40 mg Documented by: Desvenlafaxine Er (100 Mg Tab) 1 each PO BEDTIME [facility] Last Admin: 02/18/21 23:03 Dose: 1 each Documented by: Desvenlafaxine Er 50 (Mg Tab) 1 each PO BEDTIME [facility] Last Admin: 02/18/21 23:03 Dose: 1 each Documented by: Sodium Chloride (Sodium Chloride 0.9% 10 Ml Syringe) 10 ml FLUSH ASDIRECTED PRN PRN Reason: Keep Vein Open Sodium Chloride (Sodium Chloride 0.9% 2.5 Ml Syringe) 2.5 ml FLUSH ASDIRECTED PRN PRN Reason: Keep Vein Open Discontinued Medications Diphenhydramine HCl (Diphenhydramine 50 Mg/Ml Sdv) 50 mg IVPUSH ONETIME ONE Stop: 02/18/21 01:00 Last Admin: 02/18/21 02:11 Dose: 50 mg Documented by: Lorazepam (Lorazepam 1 Mg Tab) 1 mg PO ONETIME ONE Stop: 02/18/21 00:02 Last Admin: 02/18/21 00:21 Dose: 1 mg Documented by: Desvenlafaxine Er (100 Mg Tab) 100 each PO DAILY [facility] Desvenlafaxine Er 50 (Mg Tab) 1 each PO DAILY [facility] Desvenlafaxine Er (100 Mg Tab) 100 each PO BEDTIME [facility] - Exam General: Alert, Oriented, Cooperative HEENT: Mucous Membr. Moist/[place]ad Neck: Trachea Midline Lungs: Rhonchi Cardiovascular: Regular Rate, Regular Rhythm GI/Abdominal Exam: Normal Bowel Sounds, Soft, Non-Tender - Patient Data Lab Results Last 24 hrs: Laboratory Results - last 24 hr 02/19/21 02/19/21 Range/Units 07:34 07:34 WBC 3.85 L (4.0-11.0) K/uL RBC 4.76 (4.50-5.90) M/uL Hgb 13.6 (13.0-17.0) g/dL Hct 40.8 (38.0-50.0) % MCV 85.7 (80.0-98.0) fL MCH 28.6 (27.0-32.0) pg MCHC 33.3 (31.0-37.0) g/dL RDW Std Deviation 41.7 (28.0-62.0) fl RDW Coeff of [place] 13 (11.0-15.0) % Plt Count 162 (150-400) K/uL MPV 9.60 (7.40-12.00) fL Neut % (Auto) 60.7 (48.0-80.0) % Lymph % (Auto) 29.4 (16.0-40.0) % [place] % (Auto) 9.6 (0.0-15.0) % Eos % (Auto) 0.0 (0.0-7.0) % Baso % (Auto) 0.3 (0.0-1.5) % Neut # (Auto) 2.3 (1.4-5.7) K/uL Lymph # (Auto) 1.1 (0.6-2.4) K/uL [place] # (Auto) 0.4 (0.0-0.8) K/uL Eos # (Auto) 0.0 (0.0-0.7) K/uL Baso # (Auto) 0.0 (0.0-0.1) K/uL Nucleated RBC % 0.0 /100WBC Nucleated RBCs # 0 K/uL Sodium 141 (136-148) mmol/L Potassium 4.2 (3.5-5.1) mmol/L Chloride 105 (98-107) mmol/L Carbon Dioxide 27.3 (21.0-32.0) mmol/L BUN 11 (7.0-18.0) mg/dL Creatinine 1.2 (0.8-1.3) mg/dL Est Cr Clr Drug Dosing 104.50 mL/min Estimated GFR (MDRD) > 60.0 ml/min Glucose 99 (74-106) mg/dL Calcium 8.3 L (8.5-10.1) mg/dL Total Bilirubin 0.5 (0.2-1.0) mg/dL AST 30 (15-37) IU/L ALT 55 (14-63) IU/L Alkaline Phosphatase 45 L (46-116) U/L Total Protein 7.5 (6.4-8.2) g/dL Albumin 3.0 L (3.4-5.0) g/dL Globulin 4.5 H (2.6-4.0) g/dL Albumin/Globulin Ratio 0.7 L (0.9-1.6) Result Diagrams: 02/19/21 07:34 02/19/21 07:34 Jimi Results Last 24 hrs: Microbiology 02/18/21 07:28 Aerobic Blood Culture - Preliminary Blood - Venous - Lab Draw NO GROWTH AFTER 1 DAY Anaerobic Blood Culture - Preliminary NO GROWTH AFTER 1 DAY 02/18/21 07:07 Aerobic Blood Culture - Preliminary Blood - Venous NO GROWTH AFTER 1 DAY Anaerobic Blood Culture - Preliminary NO GROWTH AFTER 1 DAY Sepsis Event Note - Evaluation Sepsis Screening Result: Sepsis Risk - Focused Exam Vital Signs: Vital Signs Temp Pulse Resp BP Pulse Ox 02/19/21 11:00 98.7 F 84 14 114/75 96 02/19/21 07:00 98.4 F 93 14 128/76 94 L 02/19/21 03:55 97.8 F 97 17 117/64 95 - Problem List & Annotations (1) Depression SNOMED Code(s): 65806086 Code(s): F32.A - DEPRESSION, UNSPECIFIED Status: Acute Current Visit: Yes (2) Pneumonia SNOMED Code(s): 246673025 Code(s): J18.9 - PNEUMONIA, UNSPECIFIED ORGANISM Status: Acute Current Visit: Yes (3) Tachycardia SNOMED Code(s): 6778288 Code(s): R00.0 - TACHYCARDIA, UNSPECIFIED Status: Acute Current Visit: Yes (4) Asthma SNOMED Code(s): 292244442 Code(s): J45.909 - UNSPECIFIED ASTHMA, UNCOMPLICATED Status: Acute Current Visit: No (5) COVID-19 SNOMED Code(s): 023377334 Code(s): U07.1 - COVID-19 Status: Acute Current Visit: No (6) Palpitations SNOMED Code(s): 11433590 Code(s): R00.2 - PALPITATIONS Status: Acute Current Visit: No (7) Anxiety SNOMED Code(s): 80951405 Code(s): F41.9 - ANXIETY DISORDER, UNSPECIFIED Status: Acute Current Visit: No - Problem List Review Problem List Initiated/Reviewed/Updated: Yes - My Orders Last 24 Hours: My Active Orders 02/18/21 22:45 Patient's Own Medication [Ptom] 1 each PO BEDTIME Patient's Own Medication [Ptom] 1 each PO BEDTIME 02/20/21 05:11 CBC WITH AUTO DIFF [HEME] AM CMP [COMPREHENSIVE METABOLIC PN,CMP] [CHEM] AM 02/21/21 05:11 CBC WITH AUTO DIFF [HEME] AM CMP [COMPREHENSIVE METABOLIC PN,CMP] [CHEM] AM - Plan Plan:: 1. Pneumonia -Continue on Levaquin 750 mg per IV route every 24 hours -Continue with duo nebulizer treatment as needed for shortness of breath -We will continue to monitor patient's lab values through daily CBC/CMP 2. Sinus tachycardia -We will continue to monitor and make adjustments accordingly 3. History of anxiety and depression -Continue desvenlafaxine home dosage
[2021-02-19] MEDS: DESVENLAFAXINE 100 MG PO SCH (20:22)
[2021-02-19] MEDS: DESVENLAFAXINE ER 50 MG TAB PO SCH (20:22)
[2021-02-20 07:42] LABS: BLOOD UREA NITROGEN,BUN 15 mg/dL (7.0-18.0); CARBON DIOXIDE,CO2 26.7 mmol/L (21.0-32.0); CHLORIDE,CL 102 mmol/L (98-107); GLUCOSE RANDOM 87 mg/dL (74-106); SODIUM,NA 139 mmol/L (136-148)
[2021-02-20 08:06] VITALS: BP 109/61; PULSE 77
[2021-02-20] MEDS: Pantoprazole 40 MG Tab.CR PO SCH (08:07)
--- NOTE | 2021-02-20 10:35 | PCM.DCSUM1 ---
Discharge Summary - Discharge Data Discharge Date: 02/20/21 Discharge Disposition: Home, Self-Care 01 Condition: Stable - Referral to Home Health Primary Care Physician: Maxi Pinto MD - Patient Summary/Data Hospital Course: 25-year-old male, admitted for COVID pneumonia with concern of bacterial pneumonia. Patient presented with one week history of shortness of breath cough and fatigue and is known to be COVID positive. In the ED he was found to be tachycardic with HR in the 120-130s with a fever with temperature of 101. Patient was satting well on room air. His chest x-ray revealed hyperinflation with mild bronchial thickening with questionable developing airspace opacities within the lung bases. He was treated with Levaquin and after two days his tachycardia and symptoms have improved. He is to be discharged home to follow up with Dr. Pinto. - Patient Instructions Diet: Regular Diet as Tolerated Notify Provider of: Fever, Increased Pain, Nausea and/or Vomiting - Discharge Plan *PRESCRIPTION DRUG MONITORING PROGRAM REVIEWED*: No *COPY OF PRESCRIPTION DRUG MONITORING REPORT IN PATIENT JENNIFER: No Prescriptions/Med Rec: levoFLOXacin [Levaquin] 750 mg PO DAILY #4 tab Home Medications: Home Meds RX: Desvenlafaxine Succinate [Pristiq] 150 mg PO DAILY 06/14/17 [History] RX: Fluticasone/Vilanterol [Breo Ellipta 100-25 MCG Inhalation Kit] 1 puff INH DAILY 06/14/17 [History] RX: Ondansetron [Zofran ODT] 4 mg PO Q6H PRN #8 tab.dis 02/16/21 [Rx] RX: Promethazine HCl [Promethegan] 25 mg RC Q6HR #8 supp.rect 02/17/21 [Rx] RX: lisinopriL [Lisinopril] 20 mg PO DAILY 02/17/21 [History] levoFLOXacin [Levaquin] 750 mg PO DAILY #4 tab 02/20/21 [Rx] Patient Handouts: How to Protect Yourself and Others - CDC (11/19/2020), 10 Things You Can Do to Manage Your COVID-19 Symptoms at Home - [facility] [place]NOTE 2] (10/22/2020), Sinus Tachycardia, Infection Prevention in the Home, Community-Acquired Pneumonia, Adult, [id number] Referrals: Maxi Pinto MD [Primary Care Provider] - (Please contact your doctor to schedule a follow up appointment.) - Discharge Summary/Plan Comment DC Time >30 min.: No Total # of Minutes for Discharge Time: 10 - Patient Data Vitals - Most Recent: Last Vital Signs Temp 36.1 C 02/20/21 08:03 Pulse 77 02/20/21 08:03 Resp 16 02/20/21 08:03 BP 109/61 02/20/21 08:03 Pulse Ox 97 02/20/21 08:03 Weight - Most Recent: 106.05 kg I&O - Last 24 hours: Intake & Output 02/19/21 02/20/21 02/20/21 22:59 06:59 14:59 Intake Total 600 Output Total 0 Balance 600 Lab Results - Last 24 hrs: Laboratory Results - last 24 hr 02/20/21 02/20/21 Range/Units 06:13 06:13 WBC 4.39 (4.0-11.0) K/uL RBC 4.81 (4.50-5.90) M/uL Hgb 13.7 (13.0-17.0) g/dL Hct 40.7 (38.0-50.0) % MCV 84.6 (80.0-98.0) fL MCH 28.5 (27.0-32.0) pg MCHC 33.7 (31.0-37.0) g/dL RDW Std Deviation 40.3 (28.0-62.0) fl RDW Coeff of Alfredito 13 (11.0-15.0) % Plt Count 191 (150-400) K/uL MPV 10.30 (7.40-12.00) fL Neut % (Auto) 55.3 (48.0-80.0) % Lymph % (Auto) 31.9 (16.0-40.0) % Norton % (Auto) 11.2 (0.0-15.0) % Eos % (Auto) 1.4 (0.0-7.0) % Baso % (Auto) 0.2 (0.0-1.5) % Neut # (Auto) 2.4 (1.4-5.7) K/uL Lymph # (Auto) 1.4 (0.6-2.4) K/uL Norton # (Auto) 0.5 (0.0-0.8) K/uL Eos # (Auto) 0.1 (0.0-0.7) K/uL Baso # (Auto) 0.0 (0.0-0.1) K/uL Nucleated RBC % 0.0 /100WBC Nucleated RBCs # 0 K/uL Sodium 139 (136-148) mmol/L Potassium 4.0 (3.5-5.1) mmol/L Chloride 102 (98-107) mmol/L Carbon Dioxide 26.7 (21.0-32.0) mmol/L BUN 15 (7.0-18.0) mg/dL Creatinine 1.1 (0.8-1.3) mg/dL Est Cr Clr Drug Dosing 114.00 mL/min Estimated GFR (MDRD) > 60.0 ml/min Glucose 87 (74-106) mg/dL Calcium 8.7 (8.5-10.1) mg/dL Total Bilirubin 0.6 (0.2-1.0) mg/dL AST 27 (15-37) IU/L ALT 54 (14-63) IU/L Alkaline Phosphatase 50 (46-116) U/L Total Protein 7.5 (6.4-8.2) g/dL Albumin 2.9 L (3.4-5.0) g/dL Globulin 4.6 H (2.6-4.0) g/dL Albumin/Globulin Ratio 0.6 L (0.9-1.6) KEILY Results - Last 24 hrs: Microbiology 02/18/21 07:28 Aerobic Blood Culture - Preliminary Blood - Venous - Lab Draw NO GROWTH AFTER 2 DAYS Anaerobic Blood Culture - Preliminary NO GROWTH AFTER 2 DAYS 02/18/21 07:07 Aerobic Blood Culture - Preliminary Blood - Venous NO GROWTH AFTER 2 DAYS Anaerobic Blood Culture - Preliminary NO GROWTH AFTER 2 DAYS Med Orders - Current: Current Medications Albuterol/Ipratropium (Albuterol/Ipratropium 3.0-0.5 Mg/3 Ml Neb Soln) 3 ml NEB Q4HRRT PRN PRN Reason: Shortness of Breath Last Admin: 02/18/21 19:58 Dose: 3 ml Documented by: Enoxaparin Sodium (Enoxaparin 40 Mg/0.4 Ml Syringe) 40 mg SUBCUT Q24H GLENYS Last Admin: 02/19/21 10:40 Dose: 40 mg Documented by: Dextrose/Lactated Ringer's (Dextrose 5%-Lactated Ringers) 1,000 mls @ 999 mls/hr IV ASDIRECTED [facility] Last Admin: 02/18/21 02:11 Dose: 999 mls/hr Documented by: Levofloxacin/Dextrose 750 mg/ (Premix) 150 mls @ 100 mls/hr IV Q24H [facility] Last Admin: 02/19/21 10:36 Dose: 100 mls/hr Documented by: Pantoprazole Sodium (Pantoprazole 40 Mg Tab.Cr) 40 mg PO DAILY [facility] Last Admin: 02/20/21 08:07 Dose: 40 mg Documented by: Desvenlafaxine Er (100 Mg Tab) 1 each PO BEDTIME [facility] Last Admin: 02/19/21 20:22 Dose: 1 each Documented by: Desvenlafaxine Er 50 (Mg Tab) 1 each PO BEDTIME [facility] Last Admin: 02/19/21 20:22 Dose: 1 each Documented by: Sodium Chloride (Sodium Chloride 0.9% 10 Ml Syringe) 10 ml FLUSH ASDIRECTED PRN PRN Reason: Keep Vein Open Sodium Chloride (Sodium Chloride 0.9% 2.5 Ml Syringe) 2.5 ml FLUSH ASDIRECTED PRN PRN Reason: Keep Vein Open Discontinued Medications Diphenhydramine HCl (Diphenhydramine 50 Mg/Ml Sdv) 50 mg IVPUSH ONETIME ONE Stop: 02/18/21 01:00 Last Admin: 02/18/21 02:11 Dose: 50 mg Documented by: Lorazepam (Lorazepam 1 Mg Tab) 1 mg PO ONETIME ONE Stop: 02/18/21 00:02 Last Admin: 02/18/21 00:21 Dose: 1 mg Documented by: Desvenlafaxine Er (100 Mg Tab) 100 each PO DAILY [facility] Desvenlafaxine Er 50 (Mg Tab) 1 each PO DAILY [facility] Desvenlafaxine Er (100 Mg Tab) 100 each PO BEDTIME [facility]
[2021-02-20] MEDS: Levofloxacin/Dextrose 5%-Water 750 MG in Premix Bag 1 BAG IV SCH (11:42)
[2021-02-20] MEDS: Enoxaparin 40 MG/0.4 ML Syringe SUBCUT SCH (11:42)
== END 2021-02-20 11:15 | disposition home or self-care (01) ==
LOC: MW.ED 23:31 → MW.MS 02-18 04:53
PROVIDERS: ADMIT Internal Medicine; ATTEND Internal Medicine
DX: U07.1 COVID-19 (principal); J12.82 Pneumonia due to coronavirus disease 2019; R00.0 Tachycardia, unspecified; J45.909 Unspecified asthma, uncomplicated; J18.9 Pneumonia, unspecified organism; I10 Essential (primary) hypertension; F41.9 Anxiety disorder, unspecified; F32.A Depression, unspecified; Z79.899 Other long term (current) drug therapy
CPT/HCPCS: 36415; 71045; 80048; 80053; 81001; 83605; 84443; 84484; 85025; 87040; 93005; 96365; 96372; 96375; 96376; 99285; A9270; G0378; J1200; J1650; J1956; J7121; 96374; J7620-GY

== ENCOUNTER 2024-12-27 21:52 | Emergency (ER) | payer OTHER ==
[2024-12-27] MEDS ORDERED: Sodium Chloride 0.9% 2.5 ML Syringe FLUSH PRN (21:59)
[2024-12-27] MEDS ORDERED: Sodium Chloride 0.9% 10 ML Syringe FLUSH PRN (21:59)
[2024-12-27 22:06] LABS: BASOPHILS ABSOLUTE AUTO 0.12 K/uL (0.00-0.20); BASOPHILS PERCENT AUTO 1.6 % (0.0-1.0); EOSINOPHILS ABSOLUTE AUTO 0.21 K/uL (0.00-0.45); EOSINOPHILS PERCENT AUTO 2.8 % (0.0-6.0); IMMATURE GRAN ABSOLUTE AUTO 0.05 K/uL (0.00-0.05); IMMATURE GRAN PERCENT AUTO 0.7 % (0.0-0.4); LYMPHOCYTES ABSOLUTE AUTO 2.79 K/uL (1.00-4.80); LYMPHOCYTES PERCENT AUTO 37.6 % (24.0-44.0); MEAN PLATELET VOLUME 9.8 fL (9.4-12.4); MONOCYTES ABSOLUTE AUTO 0.69 K/uL (0.00-0.80); MONOCYTES PERCENT AUTO 9.3 % (0.0-8.0); NEUTROPHILS ABSOLUTE AUTO 3.57 K/uL (1.80-7.70); NEUTROPHILS PERCENT AUTO 48.0 % (41.0-71.0); NRBC ABSOLUTE 0.00 K/uL (0.00-0.02); NRBC PERCENT 0.0 /100WBC (0.0-0.2); PLATELET COUNT,PLT 225 K/uL (150-400); RED BLOOD CELL COUNT 5.39 M/uL (4.52-5.90); WHITE BLOOD CELL COUNT,WBC 7.43 K/uL (3.9-11.3)
[2024-12-27 22:17] LABS: INR 1.07 (0.86-1.11); PTT,PARTIAL THROMBOPLSTIN TIME 27.3 SEC (23.9-30.7)
[2024-12-27 22:26] LABS: A/G RATIO 0.8 (0.9-1.6); ALANINE AMINOTRANSFERASE,ALT 179 IU/L (14-63); ASPARTATE AMNIOTRANSFERASE,AST 97 IU/L (15-37); BILIRUBIN TOTAL 0.4 mg/dL (0.2-1.0); BLOOD UREA NITROGEN,BUN 9 mg/dL (7.0-18.0); CARBON DIOXIDE,CO2 19.2 mmol/L (21.0-32.0); CHLORIDE,CL 103 mmol/L (98-107); CREATININE 1.0 mg/dL (0.8-1.3); ETHANOL BLOOD MEDICAL 268 mg/dL; GLUCOSE RANDOM 136 mg/dL (74-106); POTASSIUM,K 3.9 mmol/L (3.5-5.1); PROTEIN TOTAL,TP 8.1 g/dL (6.4-8.2); SODIUM,NA 139 mmol/L (136-148)
[2024-12-27 22:30] LABS: ESTIMATED GFR 103 mL/min (>60)
[2024-12-27] MEDS: Iopamidol 755 MG/ML 500 ML Multipack Bottle IVPUSH ONE (22:31)
[2024-12-27] MEDS: Desvenlafaxine Succinate 25 MG TAB.ER PO ONE (23:13)
[2024-12-28 00:06] LABS: APPEARANCE,URINE CLEAR; GLUCOSE,URINE NEGATIVE (NEGATIVE); OCCULT BLOOD,URINE NEGATIVE (NEGATIVE)
[2024-12-28 00:14] LABS: EPITHELIAL CELLS,URINE NOT SEEN (NONE-FEW)
[2024-12-28 00:15] LABS: AMPHETAMINES SCREEN, URINE NEGATIVE (CUTOFF=500); BUPRENORPHINE SCREEN,URINE NEGATIVE (CUTOFF=10); METHADONE SCREEN, URINE NEGATIVE (CUTOFF=200); METHAMPHETAMINES SCREEN, URINE NEGATIVE (CUTOFF=500); OXYCODONE SCREEN,URINE NEGATIVE (CUT0FF=100); PCP SCREEN,URINE NEGATIVE (CUTOFF=25); THC SCREEN,URINE 20 NG/ML NEGATIVE (CUTOFF=50)
[2024-12-28 03:43] VITALS: BP 135/87; PULSE 109
== END 2024-12-28 01:20 ==
LOC: MW.ED 21:52
DX: S40.012A Contusion of left shoulder, initial encounter (principal); F10.120 Alcohol abuse with intoxication, uncomplicated; F41.9 Anxiety disorder, unspecified; R74.01 Elevation of levels of liver transaminase levels; I10 Essential (primary) hypertension; J45.909 Unspecified asthma, uncomplicated; Z79.899 Other long term (current) drug therapy; V58.5XXA Driver of pick-up truck or van injured in noncollision transport accident in traffic accident, initial encounter; Y93.89 Activity, other specified; Y90.9 Presence of alcohol in blood, level not specified
CPT/HCPCS: 36415; 70450; 71260; 72125; 72132; 73030; 74177; 80053; 80305; 80307; 81001; 84484; 85025; 85610; 85730; 93005; 96360; 99285; A9270; J7030; Q9967; 93010; 99284